=== PATIENT | male | born 2000 | race Caucasian/White ===

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

== ENCOUNTER 2023-03-15 09:06 | Emergency (ER) | payer OTHER, SELFPAY ==
[2023-03-15 09:07] VITALS: BP 126/85; PULSE 108; RESP 18; TEMP 36.3; O2SAT 100
[2023-03-15] MEDS: diphenhydrAMINE HCl CAP 25 MG CAPSULE PO (09:38)
[2023-03-15] MEDS: KETOROLAC 30 MG/ML VIAL (*BKC) IM (09:38)
[2023-03-15] MEDS: METOCLOPRAMIDE HCL INJ 10 MG/2 ML VIAL IM (09:39)
[2023-03-15 09:57] LABS: Influenza A QL RT-PCR Negative (Negative); Influenza B QL RT-PCR Negative (Negative); RSV RNA, RT-PCR Negative (Negative); SARS-CoV-2 RNA PCR Negative (Negative)
[2023-03-15 10:02] LABS: Basophils Absolute Auto 0.1 K/mm3 (0.0-0.1); Basophils Percent Auto 1.3 % (0.2-1.2); Eosinophils Absolute Auto 0.5 K/mm3 (0-0.3); Eosinophils Percent Auto 7.6 % (0-4.4); Hematocrit 45.5 % (42.0-52.0); Hemoglobin 14.4 g/dL (14.0-18.0); Immature Granulocyte Absolute 0.01 K/mm3 (0.00-0.031); Immature Granulocyte Percent A 0.1 % (0-0.5); Lymphocytes Absolute Auto 2.13 K/mm3 (0.9-3.2); Lymphocytes Percent Auto 29.8 % (18.3-44.2); Mean Corpuscular HGB Conc 31.6 g/dl (32-36); Mean Corpuscular Hemoglobin 28.4 pg (26-34); Mean Corpuscular Volume 89.7 fl (80-100); Mean Platelet Volume 10.5 fl (7.4-10.4); Monocytes Absolute Auto 0.6 K/mm3 (0.1-0.6); Monocytes Percent Auto 8.7 % (2.6-8.5); Neutrophils Absolute Auto 3.8 K/mm3 (1.3-6.7); Neutrophils Percent Auto 52.5 % (45.5-73.1); Platelet Count Result 252 k/mm3 (150-375); Red Blood Count 5.07 M/mm3 (4.6-6.20); Red Cell Distribution Width 14.4 % (11.5-14.5); White Blood Count 7.2 K/mm3 (4.5-10.0)
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
[2023-03-15 10:16] LABS: Anion Gap 8 mmol/L (8-16); Blood Urea Nitrogen 8 mg/dL (9-20); Calcium 9.7 mg/dL (8.4-10.2); Carbon Dioxide 29 mmol/L (22-30); Chloride 105 mmol/L (98-107); Estimated CRCL calculation 111 ml/min; Estimated Glomerular Filt Rate > 60; Glucose 93 mg/dL (65-110); Potassium 4.1 mmol/L (3.4-5.0); Sodium 142 mmol/L (137-145)
[2023-03-15 10:34] LABS: Strep Group A RT-PCR NOT DETECTED (Negative)
== END 2023-03-15 10:45 | disposition home or self-care (01) ==
PROVIDERS: Emergency Provider Emergency Medicine; PCP Internal Medicine
DX: M54.2 Cervicalgia (principal); R51.9 Headache, unspecified; Z20.822 Contact with and (suspected) exposure to COVID-19; J45.909 Unspecified asthma, uncomplicated; K21.9 Gastro-esophageal reflux disease without esophagitis; F41.9 Anxiety disorder, unspecified; F32.A Depression, unspecified; F17.290 Nicotine dependence, other tobacco product, uncomplicated
CPT/HCPCS: 36415; 80048; 85025; 87637; 87651; 96372; 99284; A9270; J1885; J2765

== ENCOUNTER 2023-05-31 17:32 | Emergency (ER) | payer OTHER, SELFPAY ==
--- NOTE | ~2023-05-31 | XR_ITS ---
EXAMINATION: XR ribs LT 2V w CXR 2V Exam Date/Time: 05/31/2023 17:54 CDT HISTORY: POSTERIOR LEFT SHOULDER PAIN, STARTED TODAY Comparison: None available. RESULT: Lines, tubes, and devices: None. Lungs and pleura: Clear. Cardiothymic silhouette: Stable. Other: No acute osseous or upper abdominal finding. Mild thoracic scoliosis. IMPRESSION: No acute cardiopulmonary process. No acute osseous finding in the left ribs. Reviewed, dictated and finalized at location K.
--- NOTE | ~2023-05-31 | XR_ITS ---
EXAM: XR shoulder LT min 2V DATE: 05/31/2023 18:05 HISTORY: POSTERIOR LEFT SHOULDER PAIN, STARTED TODAY . COMPARISON: None available. FINDINGS: Normal mineralization. No fracture or dislocation. No lytic or blastic lesion. Joint space s and physes are maintained. No erosion or periosteal change. Soft tissues within normal limits. IMPRESSION: No acute osseous finding in the left shoulder. Reviewed, dictated and finalized at location K.
[2023-05-31 17:34] VITALS: BP 124/78; PULSE 66; RESP 14; TEMP 36.3; O2SAT 99
[2023-05-31] MEDS: KETOROLAC 30 MG/ML VIAL (*BKC) IM (18:07)
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
[2023-05-31 19:11] VITALS: BP 111/79; PULSE 66; RESP 14; TEMP 36.9; O2SAT 100
== END 2023-05-31 19:13 | disposition home or self-care (01) ==
PROVIDERS: Emergency Provider Emergency Medicine; PCP Internal Medicine
DX: M25.512 Pain in left shoulder (principal); J45.909 Unspecified asthma, uncomplicated; K21.9 Gastro-esophageal reflux disease without esophagitis; F32.A Depression, unspecified; F41.9 Anxiety disorder, unspecified; F17.290 Nicotine dependence, other tobacco product, uncomplicated
CPT/HCPCS: 71046; 71100; 73030; 96372; 99284; A4565; J1885

== ENCOUNTER 2023-06-22 09:44 | Outpatient (CLI) | payer OTHER, SELFPAY ==
--- NOTE | ~2023-06-22 | MR_ITS ---
EXAMINATION: MR shoulder LT wo con DATE: 06/22/2023 10:49 INDICATION: Left shoulder pain. TECHNIQUE: Magnetic resonance imaging (MRI) of the left shoulder was performed without intravenous co ntrast. Sequences included axial PD-weighted FS FSE, coronal oblique PD-weighted FS FSE and T2-weight ed FS FSE, and sagittal oblique T2-weighted FS FSE and T1-weighted FSE. COMPARISON: Left shoulder radiographs 05/31/2023 FINDINGS: Coracoacromial arch: The acromion undersurface is flat in morphology (type I). The acromioclavicular joint is normal. Ther e is physiologic fluid in the subacromial/subdeltoid bursa. Rotator cuff: There is mild supraspinatus and infraspinous tendinopathy. Teres minor tendon is normal. Subscapulari s tendon is normal. The rotator cuff muscle bellies are normal. Biceps tendon and glenoid labrum: The biceps tendon is in bicipital groove. Intra-articular biceps tendon is normal. The glenoid labrum is normal. Fluid: There is no glenohumeral joint effusion. Bones/cartilage: Glenoid cartilage is normal. Humeral head cartilage is normal. IMPRESSION: 1. Mild rotator cuff tendinopathy. No tear. Reviewed, dictated and finalized at location E.
== END 2023-06-22 09:45 | disposition home or self-care (01) ==
LOC: ANHIMG 09:44
PROVIDERS: PCP Internal Medicine; Visit Provider Nurse Practitioner
DX: M75.22 Bicipital tendinitis, left shoulder (principal)
CPT/HCPCS: 73221

== ENCOUNTER 2024-03-24 18:51 | Emergency (ER) | payer OTHER, SELFPAY ==
[2024-03-24 18:53] VITALS: BP 123/72; PULSE 80; RESP 20; TEMP 36.1; O2SAT 100
--- OUTSIDE RECORDS SUMMARY | 2024-03-24 18:53 | XMS_ITS | Clinical Summary ---
Author Organization [facility] Address [address] [place] [address] Care Team Providers Care Senior Geotechnical Engineer Name Role Phone Unavailable Primary Care Provider Unavailabl e Source Comments [facility],non-owned Affiliates and Associated Physician Practices is amultiple site organization consisting of ambulatory clinics and hospital sitesin [place], [place], [place] and [place]. This disclosure is being madepursuant to the Care Everywhere program and may not contain all information available regarding this patient. Last updated 17.[facility] Allergies No known active allergies Medications * Be aware that medications may not be up to date on this document. Alwaysverify current medications with the patient. Medication Sig Dispensed Refills Start Date End Date Status amphetamine-dextroamph etamine (ADDERALL) 5 MG tablet Take 5 mg by mouth every morning Active FLUoxetine (PROZAC) 40 MG capsule 11/09/2018 Active ondansetron, disintegrating, (ZOFRAN ODT) 4 MG tablet 10/13/2018 Active Active Problems Problem Noted Date Diagnosed Date Closed nondisplaced fracture of proximal phalanx of finger with routine healing 02/13/2016 Avulsion fracture of thumb 02/13/2016 Chronic tonsillitis Family History Medical History Relation Name Comments Anesthesia Reaction Neg Hx Social History Tobacco Use Types Packs/Day Years Used Date Smoking Tobacco: Passive Smo ke Exposure - Never Smoker Tobacco Cessation:Counseling Given: No Alcohol Use Standard Drinks/Week Comments No 0 (1 standard drink = 0.6 oz pur e alcohol) Sex and Gender Information Value Date Recorded Sex Assigned at Not on file Gender Identity Not on file Sexual Orientation Not on file Last Filed Vital Signs Vital Sign Reading Time Taken Comments Blood Pressure 117/79 02/22/2016 1:30 PM BRAND ACTIVATION MANAGER Pulse 88 02/22/2016 2:00 PM BRAND ACTIVATION MANAGER Temperature 36.2 ??C (97.2 ??F) 02/22/2016 1:30 PM CS T Respiratory Rate 16 02/22/2016 2:00 PM BRAND ACTIVATION MANAGER Oxygen Saturation 97% 02/22/2016 2:00 PM BRAND ACTIVATION MANAGER Inhaled Oxygen Concentration - - Weight 36.4 kg (80 lb 4 oz) 11/13/2018 2:44 PM C DT Height 157.6 cm (5' 2.05 ) 11/13/2018 2:44 PM CD T Body Mass Index 14.66 11/13/2018 2:44 PM CDT Plan of Treatment Health Maintenance Due Date Last Done Comments HIV SCREENING 2017 HPV VACCINE (1 - Male 3-dose series) 2017 MENINGOCOCCAL (Group B) VACC INE (1 of 2 - Standard) 2018 HEPATITIS C SCREENING 12/04/2020 DTAP/TDAP/TD VACCINES (1 - Tdap) 2021 HEPATITIS B VACCINE (1 of 3 - 19+ 3-dose series) 2021 COVID-19 VACCINE (1 - 2023-2 5 season) 2023 INFLUENZA VACCINE (#1) 2023 DEPRESSION SCREENING 02/25/2024 ZOSTER VACCINE (1 of 2) 2052 HIB VACCINE Aged Out No longer eligi ble based on patient's age to complete this topic MENINGOCOCCAL VACCINE Aged Out No yasmani radha eligible based on patient's age to complete this topic PNEUMOCOCCAL VACCINE Aged Out No long er eligible based on patient's age to complete this topic
--- OUTSIDE RECORDS SUMMARY | 2024-03-24 18:53 | XMS_ITS | Patient Health Summary ---
Author Organization [facility] Address [address] [place] [address] Care Team Providers Care Last Sorter Name Role Phone Unavailable Primary Care Provider Unavailabl e Note from [facility],non-owned Affiliates and Associated Physician Practices is amultiple site organization consisting of ambulatory clinics and hospital sitesin [place], [place], [place] and [place]. This disclosure is being madepursuant to the Care Everywhere program and may not contain all information available regarding this patient. Last updated 17.[facility] Allergies No known active allergies Medications * Be aware that medications may not be up to date on this document. Alwaysverify current medications with the patient. * amphetamine-dextroamphetamine (ADDERALL) 5 MG tablet Take 5 mg by mouth every morning * FLUoxetine (PROZAC) 40 MG capsule(Started 11/09/2018) * ondansetron, disintegrating, (ZOFRAN ODT) 4 MG tablet(Started 10/13/2018) Active Problems Problem Noted Date Diagnosed Date Closed nondisplaced fracture of proximal phalanx of finger with routine healing 02/13/2016 Avulsion fracture of thumb 02/13/2016 Chronic tonsillitis Social History Tobacco Use Types Packs/Day Years [...] Comments Blood Pressure 117/79 02/22/2016 1:30 PM LABOR SPECIALIST Pulse 88 02/22/2016 2:00 PM LABOR SPECIALIST Temperature 36.2 ??C (97.2 ??F) 02/22/2016 1:30 PM CS T Respiratory Rate 16 02/22/2016 2:00 PM LABOR SPECIALIST Oxygen Saturation 97% 02/22/2016 2:00 PM LABOR SPECIALIST Inhaled Oxygen Concentration - - Weight 36.4 kg (80 lb 4 oz) 11/13/2018 2:44 PM C DT Height 157.6 cm (5' 2.05 ) 11/13/2018 2:44 PM CD T Body Mass Index 14.66 11/13/2018 2:44 PM CDT Procedures * XR HAND RIGHT 3VW OR MORE(Performed 11/13/2018) Performed for Right hand pain * GROSS EXAM PATHOLOGY (STL)(Performed 02/22/2016) Performed for Chronic tonsillitis * TONSILLECTOMY AND ADENOIDECTOMY(Performed 02/22/2016) Performed for Chronic tonsillitis Results * XR HAND 3+ VW RIGHT (11/13/2018 3:14 PM CDT) Anatomical Region Laterality Modality Wrist / Hand Radiographic Dorothea ging 11/13/2018 3:47 PM CDT Impressions 11/13/2018 3:49 PM CDT Normal radiographic examination of the right hand. Reading Radiologist: Cristiano Albright MD on 11/13/2018 at 3:49 PM Narrative 11/13/2018 3:49 PM CDT CLINICAL HISTORY: ??Pain in right hand COMPARISON: ??None. PROCEDURE: ??Three views of the right hand. FINDINGS: There is no visible fracture or other bony abnormality. ??The articulations are normal. The soft tissues are radiographically normal. Procedure Note Cristiano Albright MD - 11/13/2018 CLINICAL HISTORY: Pain in right hand COMPARISON: None. PROCEDURE: Three views of the right hand. FINDINGS: There is no visible fracture or other bony abnormality. The articulations are normal. The soft tissues are radiographically normal. IMPRESSION Normal radiographic examination of the right hand. Reading Radiologist: Cristiano Albright MD on 11/13/2018 at 3:49 PM Raz Villalobos MD DIAGNOSTIC IMAGING O RDERABLES * GROSS EXAM PATHOLOGY (STL) (02/22/2016 11:45 AM LABOR SPECIALIST) Case Report Surgical Pathology Report ? Case: [id number] ? Authorizing Provider: ??Kathleen Fernandez MD ?Collected: ? 02/22/2016 11:45 AM ? Ordering Location: ? [facility] ? Received: ?02/22/2016 12:06 PM ? Pathologist: ? Myranda Driscoll MD ? Specimen: ?Tonsil(s) ? 02/22/2016 1:59 PM [facility] Final Diagnosis GROSS DIAGNOSIS: PALATINE TONSILS. 02/22/2016 1:59 PM [facility] Clinical History The patient is a 15-year-old boy with chronic tonsillitis. 02/22/2016 1:59 PM [facility] Gross Description Submitted fresh in one container for gross examination only labeled with the patient's name, Derek Hays, and bilateral tonsils, are two egg-shaped, pink-weems palatine tonsils measuring 2.3 x 1.7 x 1.4 cm and 2.4 x 1.5 x 1.2 cm weighing 6 grams combined. On cut surface, the tonsils have a cerebriform yellow-weems appearance. No sections are taken. (CT/alj) 02/22/2016 1:59 PM [facility] Embedded Images 02/22/2016 1:59 PM [facility] Pathology/Cytolo gy SPECIMEN FROM TONSIL / Unknown 02/22/2016 11:45 AM LABOR SPECIALIST 02/22/2016 12:06 PM [facility] Kathleen Fernandez MD LAB - PATHOLOGY/CYTO LOGY ORDERABLES Performing Organization Address City/State/[facility] Co de Phone Number [facility] [place] [address]
--- OUTSIDE RECORDS SUMMARY | 2024-03-24 18:53 | XMS_ITS | Clinical Summary ---
Author Organization [facility] Care Team Providers Care Ocean Freight Forwarder Name Role Phone Unavailable Primary Care Provider Unavailabl e Social History Tobacco Use Types Packs/Day Years Used Date Smoking Tobacco: Never Assessed Sex and Gender Information Value Date Recorded Sex Assigned at Not on file Legal Sex Male 3:18 PM SAMPLE EXAMINER Gender Identity Not on file Sexual Orientation Not on file Plan of Treatment Health Maintenance Due Date Last Done Comments Hepatitis C Virus (HCV) Screening 2002 Meningococcal B Immunization (2 of 2 - Bexsero SCDM 2-dose series) 09/20/2019 03/22/2019 Influenza Immunization (#1) 10/26/202302/25, 12/05/2017, 12/02/2016, Additional history exists SARS-COV-2 Immunization ( season) 2023 07/14/2020, 05/21/2020 Respiratory Syncytial Virus (RSV) Immunization (Adult) (1 - 1-dose 75+ series) 2077 Hepatitis B Immunization Completed 004, 04/13/2003, 02/21/2003 Pneumococcal Immunization Combined Completed 01/05/2004, 06/17/2003, 04/13/2003, Additional history exists Measles Mumps Rubella (MMR) Immunization Discontinued 10/05/2007, 04/02/2004 Varicella Immunization Discontinued 09/07/2008, 2003 Polio (IPV) Immunization Discontinued 009, 06/17/2003, 04/13/2003, Additional history exists DTaP/Tdap/Td Immunization Discontinued 2014, 09/10/2008, 10/05/2007, Additional history exists Hepatitis A Immunization Discontinued 06/25/2014, 08/24 TdaP Immunization Completed 06/25/2014 Human Papillomavirus (HPV) Immunization Completed 10/03/2015, 08/25/2014, 06/25/2014 Meningococcal Immunization (ACWY) Completed 03/22/2019, 06/25/2014 Rotavirus Immunization Aged Out No lo nger eligible based on patient's age to complete this topic
--- OUTSIDE RECORDS SUMMARY | 2024-03-24 18:53 | XMS_ITS | Referral Summary ---
Author Organization [facility] Address [address] [place] [address] Care Team Providers Care Computer Systems Manager Name Role Phone Unavailable Primary Care Provider Unavailabl e Source Comments [facility],non-owned Affiliates and Associated Physician Practices is amultiple site organization consisting of ambulatory clinics and hospital sitesin [place], [place], [place] and [place]. This disclosure is being madepursuant to the Care Everywhere program and may not contain all information available regarding this patient. Last updated 17.[facility] Allergies No known active allergies Medications * [...] Comments Blood Pressure 117/79 02/22/2016 1:30 PM SPRAY WORKER Pulse 88 02/22/2016 2:00 PM SPRAY WORKER Temperature 36.2 ??C (97.2 ??F) 02/22/2016 1:30 PM CS T Respiratory Rate 16 02/22/2016 2:00 PM SPRAY WORKER Oxygen Saturation 97% 02/22/2016 2:00 PM SPRAY WORKER Inhaled Oxygen Concentration - - Weight 36.4 kg (80 lb 4 oz) 11/13/2018 2:44 PM C DT Height 157.6 cm (5' 2.05 ) 11/13/2018 2:44 PM CD T Body Mass Index 14.66 11/13/2018 2:44 PM CDT Functional Status Functional Status Response Date of Assess ment Is person deaf or have serious hearing difficult y? No 02/22/2016 Is person blind or have serious difficulty seein g? No 02/22/2016 Does person have serious dif ficulty walking/climbing stairs? No 02/22/2016 Does person have difficulty dressing/bathing? No 02/22/2016 Does person have difficulty doing errands alone? No 02/22/2016 Cognitive Status Response Date of Assessm ent Does person have difficulty concentrating/remembering/making decisions? No 02/22/2016 Plan of Treatment Not on file
--- NOTE | 2024-03-24 20:58 | PC.NURSE ---
Pt. called in WR to be brought back to a room with no reply.
--- OUTSIDE RECORDS SUMMARY | 2024-03-24 21:58 | XMS_ITS | Clinical Summary ---
Author Organization [facility] Care Team Providers Care Business Programmer Name Role Phone Unavailable Primary Care Provider Unavailabl e Social History Tobacco Use Types Packs/Day Years Used Date Smoking Tobacco: Never Assessed Sex and Gender Information Value Date Recorded Sex Assigned at Not on file Legal Sex Male 3:18 PM CASH GRAIN GROWER Gender Identity Not on file Sexual Orientation [...]
--- OUTSIDE RECORDS SUMMARY | 2024-03-24 21:58 | XMS_ITS | Clinical Summary ---
Author Organization [facility] Address [address] [place] [address] Care Team Providers Care Patent Lawyer Name Role Phone Unavailable Primary Care Provider Unavailabl e Source Comments [facility],non-owned Affiliates and Associated Physician Practices is amultiple site organization consisting of ambulatory clinics and hospital sitesin [place], [place] and [place]. This disclosure is being madepursuant to the Care Everywhere program and may not contain all information available regarding this patient. Last updated 17.[facility] Allergies No known active allergies Medications [...] Comments Blood Pressure 117/79 02/22/2016 1:30 PM FOREST ECOLOGIST Pulse 88 02/22/2016 2:00 PM FOREST ECOLOGIST Temperature 36.2 ??C (97.2 ??F) 02/22/2016 1:30 PM CS T Respiratory Rate 16 02/22/2016 2:00 PM FOREST ECOLOGIST Oxygen Saturation 97% 02/22/2016 2:00 PM FOREST ECOLOGIST Inhaled Oxygen Concentration - - Weight 36.4 [...]
--- OUTSIDE RECORDS SUMMARY | 2024-03-24 21:58 | XMS_ITS | Referral Summary ---
Author Organization [facility] Address [address] [place] [address] Care Team Providers Care Water Quality Analyst Name Role Phone Unavailable Primary Care Provider Unavailabl e Source Comments [facility],non-owned Affiliates and Associated Physician Practices is amultiple site organization consisting of ambulatory clinics and hospital sitesin [place], [place], [place] and [place]. This disclosure is being madepursuant to the Care Everywhere program and may not contain all information available regarding this patient. Last updated 17.[facility] Allergies No known active allergies [...] Comments Blood Pressure 117/79 02/22/2016 1:30 PM SALES CONSULTANT INSURANCE Pulse 88 02/22/2016 2:00 PM SALES CONSULTANT INSURANCE Temperature 36.2 ??C (97.2 ??F) 02/22/2016 1:30 PM CS T Respiratory Rate 16 02/22/2016 2:00 PM SALES CONSULTANT INSURANCE Oxygen Saturation 97% 02/22/2016 2:00 PM SALES CONSULTANT INSURANCE Inhaled Oxygen Concentration - - Weight 36.4 [...]
--- OUTSIDE RECORDS SUMMARY | 2024-03-24 21:58 | XMS_ITS | Patient Health Summary ---
Author Organization [facility] Address [address] [place] [address] Care Team Providers Care Data Integrity Specialist Name Role Phone Unavailable Primary Care Provider Unavailabl e Note from [facility],non-owned Affiliates and Associated Physician Practices is amultiple site organization consisting of ambulatory clinics and hospital sitesin [place], [place], [place] and [place]. This disclosure is being madepursuant to the Care Everywhere program and may not contain all information available regarding this patient. Last updated 17.[facility] Allergies No known active allergies Medications [...] Comments Blood Pressure 117/79 02/22/2016 1:30 PM MANAGER WELLNESS Pulse 88 02/22/2016 2:00 PM MANAGER WELLNESS Temperature 36.2 ??C (97.2 ??F) 02/22/2016 1:30 PM CS T Respiratory Rate 16 02/22/2016 2:00 PM MANAGER WELLNESS Oxygen Saturation 97% 02/22/2016 2:00 PM MANAGER WELLNESS Inhaled Oxygen Concentration - - Weight 36.4 [...] GROSS EXAM PATHOLOGY (STL) (02/22/2016 11:45 AM MANAGER WELLNESS) Case Report Surgical Pathology Report ? Case: [id number] ? Authorizing Provider: ??Kathleen Fernandez MD ?Collected: ? 02/22/2016 11:45 AM ? Ordering Location: ? [facility] ? Received: ?02/22/2016 12:06 PM ? Pathologist: ? Myranda Driscoll MD ? Specimen: ?Tonsil(s) ? 02/22/2016 1:59 PM [facility] Final Diagnosis GROSS DIAGNOSIS: PALATINE TONSILS. 02/22/2016 1:59 PM [facility] Clinical History The patient is a 15-year-old boy with chronic tonsillitis. 02/22/2016 1:59 PM [facility] Gross Description Submitted fresh in one [...] sections are taken. (CT/alj) 02/22/2016 1:59 PM [facility] Embedded Images 02/22/2016 1:59 PM [facility] Pathology/Cytolo gy SPECIMEN FROM TONSIL / Unknown 02/22/2016 11:45 AM MANAGER WELLNESS 02/22/2016 12:06 PM [facility] Kathleen Fernandez MD LAB - PATHOLOGY/CYTO LOGY ORDERABLES Performing Organization Address City/State/[facility] Co de Phone Number [facility] [place] [address]
== END 2024-03-24 21:58 | disposition left against medical advice (07) ==
PROVIDERS: PCP Internal Medicine
DX: M54.2 Cervicalgia (principal)
CPT/HCPCS: 99199

== ENCOUNTER 2024-03-31 22:24 | Emergency (ER) | payer OTHER, SELFPAY ==
--- NOTE | ~2024-03-31 | XR_ITS ---
CHEST RADIOGRAPH, PA AND LATERAL CLINICAL HISTORY: CHEST PAIN NECK PAIN HEADACHE NAUSEA . COMPARISON: 05/31/2023 TECHNIQUE: PA and lateral views of the chest. FINDINGS The cardiomediastinal silhouette is unremarkable. The lungs are clear. Visualized osseous structures and soft tissues are unremarkable. IMPRESSION: No focal infiltrate or effusion. Reviewed, dictated and finalized at location A. AL SCIENCE INSTRUCTOR
[2024-03-31 22:25] VITALS: BP 109/73; PULSE 69; RESP 16; TEMP 36.8; O2SAT 99
--- NOTE | 2024-03-31 22:25 | ECG_ITS ---
Test Date: 2024-03-31 22:32:25 Measurements Intervals [place] Rate: 59 P: 74 NC: 165 QRS: 74 QRSD: 116 T: 73 QT: 388 QTc: 387 Interpretive Statements SINUS BRADYCARDIA INCOMPLETE RIGHT BUNDLE BRANCH BLOCK POSSIBLE ANTERIOR MYOCARDIAL INFARCTION , OF INDETERMINATE AGE BASELINE ARTIFACT- I, II, III, AVR, AVL, AVF, V1, V5-V6 ABNORMAL ECG No previous ECG available for comparison Electronically Signed On 04-01-2024 06:20:51 ELECTRONICS PROCESSING SUPERVISOR by Wilbert Parker D.O.
--- OUTSIDE RECORDS SUMMARY | 2024-03-31 22:25 | XMS_ITS | Clinical Summary ---
Author Organization [facility] Address [address] [place] [address] Care Team Providers Care Supervisor Drawing Name Role Phone Unavailable Primary Care Provider Unavailabl e Source Comments [facility],non-owned Affiliates and Associated Physician Practices is amultiple site organization consisting of ambulatory clinics and hospital sitesin [place], [place], [place] and [place]. This disclosure is being madepursuant to the Care Everywhere program and may not contain all information available regarding this patient. Last updated 17.[facility] Allergies No known active allergies Medications * [...] Comments Blood Pressure 117/79 02/22/2016 1:30 PM MIDDLEWARE SYSTEMS ARCHITECT Pulse 88 02/22/2016 2:00 PM MIDDLEWARE SYSTEMS ARCHITECT Temperature 36.2 C (97.2 F) 02/22/2016 1:30 PM MIDDLEWARE SYSTEMS ARCHITECT Respiratory Rate 16 02/22/2016 2:00 PM MIDDLEWARE SYSTEMS ARCHITECT Oxygen Saturation 97% 02/22/2016 2:00 PM MIDDLEWARE SYSTEMS ARCHITECT Inhaled Oxygen Concentration - - Weight 36.4 [...] on patient's age to complete this topic NAT ROLLINS Personal/Family Other [address] [place] [address]
--- OUTSIDE RECORDS SUMMARY | 2024-03-31 22:25 | XMS_ITS | Patient Health Summary ---
Author Organization [facility] Address [address] [place] [address] Care Team Providers Care Pants Cutter Name Role Phone Unavailable Primary Care Provider Unavailabl e Note from [facility],non-owned Affiliates and Associated Physician Practices is amultiple site organization consisting of ambulatory clinics and hospital sitesin [place], [place], [place] and [place]. This disclosure is being madepursuant to the Care Everywhere program and may not contain all information available regarding this patient. Last updated 17.[facility] Allergies No known active allergies Medications [...] Comments Blood Pressure 117/79 02/22/2016 1:30 PM LOGISTICS CLERK Pulse 88 02/22/2016 2:00 PM LOGISTICS CLERK Temperature 36.2 C (97.2 F) 02/22/2016 1:30 PM LOGISTICS CLERK Respiratory Rate 16 02/22/2016 2:00 PM LOGISTICS CLERK Oxygen Saturation 97% 02/22/2016 2:00 PM LOGISTICS CLERK Inhaled Oxygen Concentration - - Weight 36.4 [...] Narrative 11/13/2018 3:49 PM CDT CLINICAL HISTORY: Pain in right hand COMPARISON: [...] GROSS EXAM PATHOLOGY (STL) (02/22/2016 11:45 AM LOGISTICS CLERK) Case Report Surgical Pathology Report Case: [id number] Authorizing Provider: Kathleen Fernandez MD Collected: 02/22/2016 11:45 AM Ordering Location: [facility] Received: 02/22/2016 12:06 PM Pathologist: Myranda Driscoll MD Specimen: Tonsil(s) 02/22/2016 1:59 PM [facility] Final Diagnosis GROSS DIAGNOSIS: PALATINE TONSILS. 02/22/2016 1:59 PM [facility] Clinical History The patient is a 15-year-old boy with chronic tonsillitis. 02/22/2016 1:59 PM [facility] Gross Description Submitted fresh in one [...] sections are taken. (CT/alj) 02/22/2016 1:59 PM [facility] Embedded Images 02/22/2016 1:59 PM [facility] Pathology/Cytolo gy SPECIMEN FROM TONSIL / Unknown 02/22/2016 11:45 AM LOGISTICS CLERK 02/22/2016 12:06 PM LOGISTICS CLERK Kathleen Fernandez MD LAB - PATHOLOGY/CYTO LOGY ORDERABLES [facility] [address] [place] [address]
--- OUTSIDE RECORDS SUMMARY | 2024-03-31 22:25 | XMS_ITS | Clinical Summary ---
Author Organization [facility] Care Team Providers Care Metal Organ Pipe Maker Name Role Phone Unavailable Primary Care Provider Unavailabl e Social History Tobacco Use Types Packs/Day Years Used Date Smoking Tobacco: Never Assessed Sex and Gender Information Value Date Recorded Sex Assigned at Not on file Legal Sex Male 3:18 PM PERSONNEL MONITOR Gender Identity Not on file Sexual Orientation [...]
--- OUTSIDE RECORDS SUMMARY | 2024-03-31 22:25 | XMS_ITS | Referral Summary ---
Author Organization [facility] Address [address] [place] [address] Care Team Providers Care Rn Hyperbaric Name Role Phone Unavailable Primary Care Provider Unavailabl e Source Comments [facility],non-owned Affiliates and Associated Physician Practices is amultiple site organization consisting of ambulatory clinics and hospital sitesin [place], [place], [place] and [place]. This disclosure is being madepursuant to the Care Everywhere program and may not contain all information available regarding this patient. Last updated 17.[facility] Allergies No known active allergies Medications [...] Comments Blood Pressure 117/79 02/22/2016 1:30 PM PIPE STEM REPAIRER Pulse 88 02/22/2016 2:00 PM PIPE STEM REPAIRER Temperature 36.2 C (97.2 F) 02/22/2016 1:30 PM PIPE STEM REPAIRER Respiratory Rate 16 02/22/2016 2:00 PM PIPE STEM REPAIRER Oxygen Saturation 97% 02/22/2016 2:00 PM PIPE STEM REPAIRER Inhaled Oxygen Concentration - - Weight 36.4 [...]
[2024-03-31 23:03] LABS: Basophils Absolute Auto 0.1 K/mm3 (0.0-0.1); Basophils Percent Auto 1.2 % (0.2-1.2); Eosinophils Absolute Auto 0.4 K/mm3 (0-0.3); Eosinophils Percent Auto 6.4 % (0-4.4); Hemoglobin 15.2 g/dL (14.0-18.0); Immature Granulocyte Absolute 0.02 K/mm3 (0.00-0.031); Immature Granulocyte Percent A 0.3 % (0-0.5); Lymphocytes Absolute Auto 1.62 K/mm3 (0.9-3.2); Lymphocytes Percent Auto 24.2 % (18.3-44.2); Mean Corpuscular Hemoglobin 28.8 pg (26-34); Mean Corpuscular Volume 87.1 fl (80-100); Mean Platelet Volume 10.6 fl (7.4-10.4); Monocytes Absolute Auto 0.5 K/mm3 (0.1-0.6); Monocytes Percent Auto 7.5 % (2.6-8.5); Neutrophils Absolute Auto 4.1 K/mm3 (1.3-6.7); Neutrophils Percent Auto 60.4 % (45.5-73.1); Platelet Count Result 281 k/mm3 (150-375); Red Blood Count 5.28 M/mm3 (4.6-6.20); Red Cell Distribution Width 14.2 % (11.5-14.5); White Blood Count 6.7 K/mm3 (4.5-10.0)
[2024-03-31 23:14] LABS: INR 1.1; Prothrombin Time 14.9 Seconds (11.1-14.7)
[2024-03-31 23:15] LABS: Partial Thromboplastin Time 30.6 Seconds (22.3-36.8)
[2024-03-31 23:17] LABS: Alanine Aminotransferase 15 U/L (6-50); Albumin Level 4.4 g/dL (3.5-5.1); Alkaline Phosphatase 85 U/L (38-126); Anion Gap 11 mmol/L (4-12); Aspartate Amino Transferase 18 U/L (17-59); Bilirubin,Total 0.5 mg/dL (0.2-1.3); Blood Urea Nitrogen 11 mg/dL (9-20); Calcium 9.6 mg/dL (8.4-10.2); Carbon Dioxide 23 mmol/L (22-30); Chloride 104 mmol/L (98-107); Estimated CRCL calculation 132 ml/min; Estimated Glomerular Filt Rate > 60; Glucose 101 mg/dL (65-110); Lipase 128 U/L (23-300); Potassium 4.1 mmol/L (3.4-5.0); Sodium 138 mmol/L (137-145)
[2024-03-31 23:26] LABS: Troponin I < 0.012 ng/mL (0.000-0.034)
[2024-04-01 04:59] VITALS: O2SAT 100
[2024-04-01 05:00] VITALS: BP 114/68; PULSE 60; RESP 14; TEMP 36.7; O2SAT 100
[2024-04-01 05:22] VITALS: BP 108/64; PULSE 60; RESP 14; TEMP 36.7; O2SAT 100
[2024-04-01 05:46] LABS: Influenza A QL RT-PCR Negative (Negative); Influenza B QL RT-PCR Negative (Negative); RSV RNA, RT-PCR Negative (Negative); SARS-CoV-2 RNA PCR Negative (Negative)
[2024-04-01 07:13] VITALS: BP 103/73; PULSE 78; RESP 14; O2SAT 100
--- NOTE | 2024-04-01 07:33 | ED_ITS ---
HPI - General Adult General Chief complaint: Chest Pain Stated complaint: head, neck, chest pain, nausea Time Seen by Provider: 04/01/24 07:18 History of Present Illness HPI narrative: Patient 23-year-old gentleman presents emergency department with chief complaint of head neck and chest pain the patient reports that around 3:00 a.m. he started having pain states that the pain is worse with movement reports that it is in the muscles of his neck. Patient denies fever denies productive cough states that pain feels sharp and achy at the same time. Related Data Allergies Allergy/AdvReac Type Severity Reaction Status Date / Time No Known Allergies Allergy Verified 04/01/24 04:58 Review of Systems 2 Review of Systems: A 10 system review of systems was completed on the patient and is negative except for what is stated in the HPI. Nursing and ancillary documentation was reviewed. [facility] Past Medical History Medical History Anxiety Suicidal ideation Self-harm Depression Finger fracture GERD (gastroesophageal reflux disease) Asthma Surgical History Surgical History History of tonsillectomy Family History Family History Father Asthma Mother Asthma Depression Anxiety Grandparent Diabetes mellitus Hypertension Social History Social History Smoking status: Current every day smoker Tobacco type: e-cigarettes/vaping Substance use: current Substance use type: marijuana Other substance usage details: Occasionally smokes marijuana for depression and anxiety Do You Feel Safe in your Home?: Yes Lack of Transportation: No Lack of Food: Never True Current Housing: I Have Housing Concerned About Future Housing: No Difficulty Paying Gas/Electric Bills: No Difficulty Paying for Meds: No Currently Unemployed: YES Education: High School Diploma/GED Difficulty w/ Childcare or Family Care: No Living arrangements: with family Gender identity (if verbalized by the patient): Male Exam 2 Narrative: GENERAL: Well-appearing, well-nourished, and in no acute distress. HEAD: Normocephalic, atraumatic. EYES: PERRLA and EOMI. ENT: Nares clear, no rhinorrhea or epistaxis. Mucous membranes moist. NECK: Supple. Shortness palpation paraspinous muscles of the left side of the neck no crepitance CHEST: Clear to auscultation. No respiratory distress. HEART: Regular rate and rhythm. No murmur heard. Normal peripheral pulses. ABDOMEN: Soft, nontender, nondistended, normal active bowel sounds. EXTREMITIES: Normal range of motion. No edema. SKIN: Warm, dry, no rash. NEURO: No focal deficits. Alert and oriented x3. PSYCH: Normal mood and affect. Course Vital Signs Vital signs: Vital Signs Temperature 36.8 C 03/31/24 22:25 Pulse Rate 69 03/31/24 22:25 Respiratory Rate 16 03/31/24 22:25 Blood Pressure 109/73 03/31/24 22:25 Pulse Oximetry 99 03/31/24 22:25 Oxygen Delivery Room Air 03/31/24 22:25 Temperature 36.7 C 04/01/24 05:22 Pulse Rate 78 04/01/24 07:13 Respiratory Rate 14 04/01/24 07:13 Blood Pressure 103/73 04/01/24 07:13 Pulse Oximetry 100 04/01/24 07:13 Oxygen Delivery Room Air 04/01/24 05:00 Medical Decision Making MDM Narrative Medical decision making narrative: Differential diagnosis includes musculoskeletal pain, Laboratory studies were obtained on the patient showed a normal CBC normal CMP troponin was negative COVID flu and RSV were negative Chest x-ray showed no focal infiltrate Vital Signs Vital Signs: Vital Signs Temperature 36.8 C 03/31/24 22:25 Pulse Rate 69 03/31/24 22:25 Respiratory Rate 16 03/31/24 22:25 Blood Pressure 109/73 03/31/24 22:25 Pulse Oximetry 99 03/31/24 22:25 Oxygen Delivery Room Air 03/31/24 22:25 Temperature 36.7 C 04/01/24 05:22 Pulse Rate 78 04/01/24 07:13 Respiratory Rate 14 04/01/24 07:13 Blood Pressure 103/73 04/01/24 07:13 Pulse Oximetry 100 04/01/24 07:13 Oxygen Delivery Room Air 04/01/24 05:00 Lab Data 03/31/24 22:39 03/31/24 22:39 Labs: Lab Results 03/31/24 04/01/24 Range/Units 22:39 05:05 WBC 6.7 (4.5-10.0) K/mm3 RBC 5.28 (4.6-6.20) M/mm3 Hgb 15.2 (14.0-18.0) g/dL Hct 46.0 (42.0-52.0) % MCV 87.1 (80-100) fl MCH 28.8 (26-34) pg MCHC 33.0 (32-36) g/dl RDW 14.2 (11.5-14.5) % Plt Count 281 (150-375) k/mm3 MPV 10.6 H (7.4-10.4) fl Immature Gran % (Auto) 0.3 (0-0.5) % Neut % (Auto) 60.4 (45.5-73.1) % Lymph % (Auto) 24.2 (18.3-44.2) % [place] % (Auto) 7.5 (2.6-8.5) % Eos % (Auto) 6.4 H (0-4.4) % Baso % (Auto) 1.2 (0.2-1.2) % Lymph # (Auto) 1.62 (0.9-3.2) K/mm3 [place] # (Auto) 0.5 (0.1-0.6) K/mm3 Eos # (Auto) 0.4 H (0-0.3) K/mm3 Baso # (Auto) 0.1 (0.0-0.1) K/mm3 Abs Immat Gran (auto) 0.02 (0.00-0.031) K/mm3 Absolute Neuts (auto) 4.1 (1.3-6.7) K/mm3 Absolute Nucleated RBC 0.000 (0.0-0.012) K/mm3 Nucleated RBC % 0.0 (0.0-0.2) % PT 14.9 H (11.1-14.7) Seconds INR 1.1 APTT 30.6 (22.3-36.8) Seconds Sodium 138 (137-145) mmol/L Potassium 4.1 (3.4-5.0) mmol/L Chloride 104 (98-107) mmol/L Carbon Dioxide 23 (22-30) mmol/L Anion Gap 11 (4-12) mmol/L BUN 11 (9-20) mg/dL Creatinine 0.58 L (0.7-1.3) mg/dL Estim Creat Clear Calc 132 ml/min Estimated GFR > 60 (59 - ) Glucose 101 (65-110) mg/dL Calcium 9.6 (8.4-10.2) mg/dL Total Bilirubin 0.5 (0.2-1.3) mg/dL AST 18 (17-59) U/L ALT 15 (6-50) U/L Alkaline Phosphatase 85 (38-126) U/L Troponin I < 0.012 (0.000-0.034) ng/mL Total Protein 7.0 (6.3-8.2) g/dL Albumin 4.4 (3.5-5.1) g/dL Lipase 128 (23-300) U/L Influenza A (RT-PCR) Negative (Negative) Influenza B (RT-PCR) Negative (Negative) RSV (RT-PCR) Negative (Negative) SARS-CoV-2 RNA (RT-PCR) Negative (Negative) Discharge Plan Discharge Clinical Impression: Neck Pain Patient Disposition: Home, Self-Care Condition: Stable Instructions: Antibiotic Form, Acute Neck Pain (ED) Patient Language: Turkmen Prescriptions: New diclofenac potassium 50 mg tablet 50 mg PO TID PRN (Reason: pain) Qty: 30 0RF cyclobenzaprine 10 mg tablet 10 mg PO TID PRN (Reason: muscle spasm) Qty: 21 0RF No Action albuterol sulfate 90 mcg/actuation HFA aerosol inhaler 2 puff inhalation Q4H PRN (Reason: shortness of breath or wheezing) Qty: 8.5 3RF methocarbamol 750 mg tablet 750 mg PO TID Qty: 30 0RF ibuprofen 600 mg tablet 600 mg PO TID PRN (Reason: fever or pain) Qty: 30 0RF ondansetron 4 mg tablet,disintegrating 4 mg PO Q8H PRN (Reason: nausea and vomiting) Qty: 10 0RF cyclobenzaprine 10 mg tablet 10 mg PO TID PRN (Reason: muscle spasm) Qty: 20 0RF naproxen 375 mg tablet 375 mg PO BID Qty: 14 0RF hydroxyzine HCl 25 mg tablet 25 mg PO DAILY PRN (Reason: anxiety) Qty: 90 3RF Follow-up/Referrals: Thiago Coy, [Primary Care Provider] - Time of Disposition: 07:36
--- OUTSIDE RECORDS SUMMARY | 2024-04-01 07:52 | XMS_ITS | Clinical Summary ---
Author Organization [facility] Address [address] [place] [address] Care Team Providers Care Waiter/Waitress Head Name Role Phone Unavailable Primary Care Provider Unavailabl e Source Comments [facility],non-owned Affiliates and Associated Physician Practices is amultiple site organization consisting of ambulatory clinics and hospital sitesin [place], [place], [place] and [place]. This disclosure is being madepursuant to the [...] Comments Blood Pressure 117/79 02/22/2016 1:30 PM WINTERIZER Pulse 88 02/22/2016 2:00 PM WINTERIZER Temperature 36.2 C (97.2 F) 02/22/2016 1:30 PM WINTERIZER Respiratory Rate 16 02/22/2016 2:00 PM WINTERIZER Oxygen Saturation 97% 02/22/2016 2:00 PM WINTERIZER Inhaled Oxygen Concentration - - Weight 36.4 [...]
--- OUTSIDE RECORDS SUMMARY | 2024-04-01 07:52 | XMS_ITS | Referral Summary ---
Author Organization [facility] Address [address] [place] [address] Care Team Providers Care Brush Loader And Handle Attacher Name Role Phone Unavailable Primary Care Provider Unavailabl e Source Comments [facility],non-owned Affiliates and Associated Physician Practices is amultiple site organization consisting of ambulatory clinics and hospital sitesin [place], [place], [place] and [place]. This disclosure is being madepursuant to the Care Everywhere program and may not contain all information available regarding this patient. Last updated 17.[facility] Allergies No known active allergies [...] Comments Blood Pressure 117/79 02/22/2016 1:30 PM FUR MACHINE OPERATOR Pulse 88 02/22/2016 2:00 PM FUR MACHINE OPERATOR Temperature 36.2 C (97.2 F) 02/22/2016 1:30 PM FUR MACHINE OPERATOR Respiratory Rate 16 02/22/2016 2:00 PM FUR MACHINE OPERATOR Oxygen Saturation 97% 02/22/2016 2:00 PM FUR MACHINE OPERATOR Inhaled Oxygen Concentration - - Weight 36.4 [...]
--- OUTSIDE RECORDS SUMMARY | 2024-04-01 07:52 | XMS_ITS | Patient Health Summary ---
Author Organization [facility] Address [address] [place] [address] Care Team Providers Care Lens Edge Grinder Machine Name Role Phone Unavailable Primary Care Provider Unavailabl e Note from [facility],non-owned Affiliates and Associated Physician Practices is amultiple site organization consisting of ambulatory clinics and hospital sitesin [place], [place], [place] and [place]. This disclosure is being madepursuant to the Care Everywhere program and may not contain all information available regarding this patient. Last updated 17.[facility] Allergies No known active allergies Medications [...] Comments Blood Pressure 117/79 02/22/2016 1:30 PM TRAY DRIER Pulse 88 02/22/2016 2:00 PM TRAY DRIER Temperature 36.2 C (97.2 F) 02/22/2016 1:30 PM TRAY DRIER Respiratory Rate 16 02/22/2016 2:00 PM TRAY DRIER Oxygen Saturation 97% 02/22/2016 2:00 PM TRAY DRIER Inhaled Oxygen Concentration - - Weight 36.4 [...] GROSS EXAM PATHOLOGY (STL) (02/22/2016 11:45 AM TRAY DRIER) Case Report Surgical Pathology Report Case: [id number] Authorizing Provider: Kathleen Fernandez MD Collected: 02/22/2016 11:45 AM Ordering Location: [facility] Received: 02/22/2016 12:06 PM Pathologist: Myranda Driscoll MD Specimen: Tonsil(s) 02/22/2016 1:59 PM [facility] Final Diagnosis GROSS DIAGNOSIS: PALATINE TONSILS. 02/22/2016 1:59 PM [facility] Clinical History The patient is a 15-year-old boy with chronic tonsillitis. 02/22/2016 1:59 PM [facility] Gross Description Submitted fresh in [...] sections are taken. (CT/alj) 02/22/2016 1:59 PM [facility] Embedded Images 02/22/2016 1:59 PM [facility] Pathology/Cytolo gy SPECIMEN FROM TONSIL / Unknown 02/22/2016 11:45 AM TRAY DRIER 02/22/2016 12:06 PM TRAY DRIER Kathleen Fernandez MD LAB - PATHOLOGY/CYTO LOGY ORDERABLES [facility] [address] [place] [address]
--- OUTSIDE RECORDS SUMMARY | 2024-04-01 07:52 | XMS_ITS | Clinical Summary ---
Author Organization [facility] Care Team Providers Care Solar Thermal Technician Name Role Phone Unavailable Primary Care Provider Unavailabl e Social History Tobacco Use Types Packs/Day Years Used Date Smoking Tobacco: Never Assessed Sex and Gender Information Value Date Recorded Sex Assigned at Not on file Legal Sex Male 3:18 PM FIELD NURSE CASE MANAGER Gender Identity Not on file Sexual Orientation [...]
[2024-04-01] MEDS: KETOROLAC 30 MG/ML VIAL (*BKC) IM (08:07)
[2024-04-01] MEDS: METOCLOPRAMIDE HCL INJ 10 MG/2 ML VIAL IM (08:08)
[2024-04-01] MEDS: diphenhydrAMINE HCl INJ 50 MG/ML VIAL 25 MG IM (08:08)
[2024-04-01 08:15] VITALS: BP 115/76; PULSE 70; RESP 17; O2SAT 99
== END 2024-04-01 08:17 | disposition home or self-care (01) ==
LOC: ANHED 04-01 07:51
PROVIDERS: Physician Assistant; Emergency Provider Emergency Medicine; PCP Internal Medicine
DX: M54.2 Cervicalgia (principal); K21.9 Gastro-esophageal reflux disease without esophagitis; J45.909 Unspecified asthma, uncomplicated; F41.8 Other specified anxiety disorders; F17.290 Nicotine dependence, other tobacco product, uncomplicated; Z20.822 Contact with and (suspected) exposure to COVID-19
CPT/HCPCS: 36415; 71046; 80053; 83690; 84484; 85025; 85610; 85730; 87637; 93005; 96372; 99284; J1200; J1885; J2765

== ENCOUNTER 2024-04-24 19:19 | Emergency (ER) | payer OTHER, SELFPAY ==
[2024-04-24 19:34] VITALS: BP 107/62; PULSE 75; RESP 13; TEMP 36.4; O2SAT 99
[2024-04-24] MEDS: SODIUM CHLORIDE 0.9% IV 1,000 ML 999 ML IV CONT (21:47)
[2024-04-24] MEDS: METOCLOPRAMIDE HCL INJ 10 MG/2 ML VIAL IV PUSH (21:48)
[2024-04-24] MEDS: diphenhydrAMINE HCl INJ 50 MG/ML VIAL 25 MG IV PUSH (21:48)
[2024-04-24] MEDS: ACETAMINOPHEN 500 MG TABLET 1000 MG PO (21:48)
--- NOTE | 2024-04-24 21:49 | ED.HA ---
HPI - Headache General Chief Complaint: Headache Stated Complaint: neck/ head pain Time Seen by Provider: 04/24/24 20:55 Source: patient Mode of arrival: ambulatory Limitations: no limitations History of Present Illness HPI Narrative: This is a 23 year old male that presents to the ER for headache and neck pain. Ongoing since this morning. Reports he took Ibuprofen with little improvement. He was recently seen in the ER for same, has run out of his cyclobenzaprine. Denies fever, vision changes, vomiting, focal numbness or weakness. Related Data Allergies Allergy/AdvReac Type Severity Reaction Status Date / Time No Known Allergies Allergy Verified 04/01/24 04:58 Review of Systems Review of Systems: CONSTITUTIONAL: Denies fever EYES: Denies visual changes GASTROINTESTINAL: Denies vomiting MUSCULOSKELETAL: Reports myalgia. NEUROLOGIC: Denies numbness, or weakness. All systems reviewed & are unremarkable except as noted in HPI and below PMFSH Past Medical History Medical History Anxiety Suicidal ideation Self-harm Depression Finger fracture GERD (gastroesophageal reflux disease) Asthma Surgical History Surgical History History of tonsillectomy Family History Family History Father Asthma Mother Asthma Depression Anxiety Grandparent Diabetes mellitus Hypertension Social History Social History Smoking status: Current every day smoker Tobacco type: e-cigarettes/vaping Substance use: current Substance use type: marijuana Other substance usage details: Occasionally smokes marijuana for depression and anxiety Do You Feel Safe in your Home?: Yes Lack of Transportation: No Lack of Food: Never True Current Housing: I Have Housing Concerned About Future Housing: No Difficulty Paying Gas/Electric Bills: No Difficulty Paying for Meds: No Currently Unemployed: YES Education: High School Diploma/GED Difficulty w/ Childcare or Family Care: No Living arrangements: with family Gender identity (if verbalized by the patient): Male Exam Narrative: GENERAL: Well-appearing, well-nourished, and in no acute distress. HEAD: Normocephalic, atraumatic. EYES: PERRLA and EOMI. ENT: Nares clear, no rhinorrhea or epistaxis. Mucous membranes moist. Oropharynx without tonsillar hypertrophy exudate or other lesions. Bilateral TMs pearly henry non-bulging NECK: Supple. No adenopathy or masses. Normal ROM CHEST: Clear to auscultation. No respiratory distress. No wheezes rales or rhonchi HEART: Regular rate and rhythm. No murmur heard. Normal peripheral pulses. EXTREMITIES: Normal range of motion. No edema. Strength equal in bilateral upper and lower extremities (5/5) SKIN: Warm, dry, no rash. NEURO: No focal deficits. Alert and oriented x3. CN II-XII grossly intact PSYCH: Normal mood and affect Course Course Emergency Course: patient updated on workup and agrees with plan of care Vital Signs Vital signs: Vital Signs Temperature 97.5 F L 04/24/24 19:34 Pulse Rate 75 04/24/24 19:34 Respiratory Rate 13 04/24/24 19:34 Blood Pressure 107/62 04/24/24 19:34 Pulse Oximetry 99 04/24/24 19:34 Oxygen Delivery Room Air 04/24/24 19:34 Temperature 97.5 F L 04/24/24 19:34 Pulse Rate 57 L 04/25/24 00:15 Respiratory Rate 16 04/25/24 00:15 Blood Pressure 108/58 L 04/25/24 00:15 Pulse Oximetry 98 04/25/24 00:15 Oxygen Delivery Room Air 04/24/24 19:34 MDM - Headache MDM Narrative Medical decision making narrative: Patient presents the emergency department for headache and neck pain. Ongoing since this morning. Patient is neurologically intact. His vitals are stable. CT brain and cervical spine without acute findings. Patient given IV fluids, Reglan, Benadryl and Tylenol. Resting comfortably. Updated on his workup. He is to follow up with primary provider. He was also given follow-up with Neurology for his headaches. He was given warnings to return to the ER Differential Diagnosis Differential diagnosis: Likely migraine, tension headache, subarachnoid hemorrhage, headache, sinusitis and other (Muscle strain, muscle spasm) Imaging Data Radiologist's impression: CT brain: No evidence of acute intracranial pathology CT cervical spine: No evidence of acute cervical spine pathology. Extensive dental caries Critical Care Time Critical Care Time Critical Care Time: No Discharge Plan Discharge Clinical Impression: Neck pain Headache Qualifiers: Headache type: unspecified Headache chronicity pattern: acute headache Intractability: not intractable Qualified Code(s): R51.9 - Headache, unspecified Patient Disposition: Home, Self-Care Condition: Improved Instructions: General Headache (ED), Acute Neck Pain (ED) Additional Instructions: Return to the emergency department if you experience fever, vision changes, chest pain, shortness of breath, abdominal pain with nausea and vomiting, weakness, numbness, or any other symptoms that are concerning to you. Rest. Remain well hydrated. Over the counter pain medication as needed. Muscle relaxer as needed for pain Follow up with primary care doctor Patient Language: Sinhala Prescriptions: New cyclobenzaprine 10 mg tablet 10 mg PO TID PRN (Reason: muscle spasm) Qty: 14 0RF No Action albuterol sulfate 90 mcg/actuation HFA aerosol inhaler 2 puff inhalation Q4H PRN (Reason: shortness of breath or wheezing) Qty: 8.5 3RF methocarbamol 750 mg tablet 750 mg PO TID Qty: 30 0RF ibuprofen 600 mg tablet 600 mg PO TID PRN (Reason: fever or pain) Qty: 30 0RF ondansetron 4 mg tablet,disintegrating 4 mg PO Q8H PRN (Reason: nausea and vomiting) Qty: 10 0RF cyclobenzaprine 10 mg tablet 10 mg PO TID PRN (Reason: muscle spasm) Qty: 20 0RF naproxen 375 mg tablet 375 mg PO BID Qty: 14 0RF diclofenac potassium 50 mg tablet 50 mg PO TID PRN (Reason: pain) Qty: 30 0RF cyclobenzaprine 10 mg tablet 10 mg PO TID PRN (Reason: muscle spasm) Qty: 21 0RF hydroxyzine HCl 25 mg tablet 25 mg PO DAILY PRN (Reason: anxiety) Qty: 90 3RF Follow-up/Referrals: Papo Farris MD [Physician] - Thiago Coy DO [Primary Care Provider] -
[2024-04-25 00:15] VITALS: BP 108/58; PULSE 57; RESP 16; O2SAT 98
== END 2024-04-25 01:02 | disposition home or self-care (01) ==
PROVIDERS: Emergency Provider Physician Assistant; PCP Internal Medicine
DX: R51.9 Headache, unspecified (principal); M54.2 Cervicalgia; J45.909 Unspecified asthma, uncomplicated; K21.9 Gastro-esophageal reflux disease without esophagitis; F41.9 Anxiety disorder, unspecified; F32.A Depression, unspecified; F17.290 Nicotine dependence, other tobacco product, uncomplicated; Z79.899 Other long term (current) drug therapy
CPT/HCPCS: 70450; 72125; 96361; 96374; 96375; 99284; A9270; J1200; J2765; J7030

== ENCOUNTER 2024-07-15 10:45 | Outpatient (CLI) | payer OTHER, SELFPAY ==
--- NOTE | ~2024-07-15 | MR_ITS ---
MRI of the brain Clinical History: Headache Technique: Axial and sagittal T1-weighted images were acquired. These were followed by axial T2-weigh braden, diffusion weighted, gradient, and FLAIR images. Following intravenous administration of 11 cc Pr oHance gadolinium, T1-weighted fat-sat imaging was performed in the axial and coronal planes. Findings: No abnormal signal seen in the brain parenchyma. No acute infarct, intracranial hemorrhage, or mass lesion. Ventricles and subarachnoid spaces are unremarkable. Orbits are unremarkable. Paranasal sinuses and m astoid areas are clear. Major intracranial flow voids are intact. Sagittal midline structures are intact. No abnormal postcontrast enhancement identified. IMPRESSION: Normal exam. Reviewed, dictated and finalized at location M. IMPRESSION: Normal exam.
--- OUTSIDE RECORDS SUMMARY | 2024-07-15 10:52 | XMS_ITS | Clinical Summary ---
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
--- OUTSIDE RECORDS SUMMARY | 2024-07-15 10:52 | XMS_ITS | Clinical Summary ---
Author Organization [facility] Address [address] [place] [address] Care Team Providers Care Crime Lab Analyst Name Role Phone Unavailable Primary Care Provider Unavailabl e Source Comments [facility],non-owned Affiliates and Associated Physician Practices is amultiple site organization consisting of ambulatory clinics and hospital sitesin [place], [place], [place] and [place]. This disclosure is being madepursuant to the Care Everywhere program and may not contain all information available regarding this patient. Last updated 17.[facility] [email or web address] Allergies No known active allergies Medications * Be aware that medications may not be up to date on this document. Alwaysverify current medications with the patient. amphetamine-dex troamphetamine (ADDERALL) 5 MG tablet Take 5 mg [...] at Not on file Legal Sex Male 10:55 AM CDT Gender Identity Not on file Sexual Orientation Not on file Last Filed Vital Signs Vital Sign Reading Time Taken Comments Blood Pressure 117/79 02/22/2016 1:30 PM TUNNEL WORKER Pulse 88 02/22/2016 2:00 PM TUNNEL WORKER Temperature 36.2 C (97.2 F) 02/22/2016 1:30 PM TUNNEL WORKER Respiratory Rate 16 02/22/2016 2:00 PM TUNNEL WORKER Oxygen Saturation 97% 02/22/2016 2:00 PM TUNNEL WORKER Inhaled Oxygen Concentration - - Weight 36.4 kg (80 lb 4 oz) 11/13/2018 2:44 PM C DT Height 157.6 cm (5' 2.05 ) 11/13/2018 2:44 PM CD T Body Mass Index 14.66 11/13/2018 2:44 PM CDT Plan of Treatment Health Maintenance Due Date Last Done Comments HIV SCREENING 2017 HPV VACCINE (1 - Male 3-dose series) 2017 MENINGOCOCCAL (Group B) VACC INE SHARED DECISION-MAKING (1 of 2 - Standard) 2018 HEPATITIS C SCREENING 12/04/2020 DTAP/TDAP/TD VACCINES (1 - Tdap) 2021 HEPATITIS B VACCINE (1 of 3 - 19+ 3-dose series) 2021 COVID-19 VACCINE (1 - 2023-2 5 season) 2023 DEPRESSION SCREENING 02/25/2024 INFLUENZA VACCINE (Season Ended) 2024 ZOSTER VACCINE (1 of 2) 2052 HIB VACCINE Aged Out No longer eligi ble based on patient's age to complete this topic MENINGOCOCCAL GROUPS A/C/Y/W VACCINE Aged Out No longer eligible b ased on patient's age to complete this topic PNEUMOCOCCAL VACCINE Aged Out No long er eligible based on patient's age to complete this topic Insurance [facility]
== END 2024-07-15 10:46 | disposition home or self-care (01) ==
PROVIDERS: PCP Internal Medicine; Visit Provider Clinical Nurse Specialist
DX: R51.9 Headache, unspecified (principal); M54.2 Cervicalgia; Z82.79 Family history of other congenital malformations, deformations and chromosomal abnormalities
CPT/HCPCS: 70553; A9579

== ENCOUNTER 2024-08-19 20:17 | Emergency (ER) | payer OTHER, SELFPAY ==
[2024-08-19] VITALS (7 sets, daily range): BP systolic 123–145; BP diastolic 77–86; PULSE 58–79; RESP 14–19; TEMP 36.6–36.8; O2SAT 99–100
--- NOTE | ~2024-08-19 | CT_ITS ---
CT of the Abdomen and Pelvis: Indication: Abdominal pain Technique: 2.5 mm axial scans were obtained through the abdomen and pelvis following intravenous adm inistration of 100 cc of Omnipaque 350. Dose reduction technique was used on this scan by utilizing a utomated exposure control and iterative reconstruction technique. The dose-length product (DLP) was 2 04.91 mGy-cm. Findings: Scans through the lung bases are unremarkable. The liver, spleen, pancreas, gallbladder, adrenals and kidneys are within normal limits. No evidence of aortic aneurysm. No lymphadenopathy. No bowel obstruction or bowel wall thickening. There is no evidence to suggest acute appendicitis. Images through the pelvis were performed. Urinary bladder unremarkable. No pelvic mass seen. Trace pe lvic free fluid noted. Impression: Trace pelvic free fluid, otherwise unremarkable exam. Reviewed, dictated and finalized at location . Impression: Trace pelvic free fluid, otherwise unremarkable exam.
[2024-08-19 23:24] LABS: Basophils Absolute Auto 0.1 K/mm3 (0.0-0.1); Basophils Percent Auto 0.4 % (0.2-1.2); Eosinophils Absolute Auto 0.1 K/mm3 (0-0.3); Eosinophils Percent Auto 0.6 % (0-4.4); Hematocrit 45.3 % (42.0-52.0); Hemoglobin 14.9 g/dL (14.0-18.0); Immature Granulocyte Absolute 0.06 K/mm3 (0.00-0.031); Immature Granulocyte Percent A 0.4 % (0-0.5); Lymphocytes Absolute Auto 1.65 K/mm3 (0.9-3.2); Lymphocytes Percent Auto 10.5 % (18.3-44.2); Mean Corpuscular HGB Conc 32.9 g/dl (32-36); Mean Corpuscular Hemoglobin 28.3 pg (26-34); Mean Platelet Volume 10.1 fl (7.4-10.4); Monocytes Percent Auto 6.4 % (2.6-8.5); Neutrophils Absolute Auto 12.9 K/mm3 (1.3-6.7); Neutrophils Percent Auto 81.7 % (45.5-73.1); Platelet Count Result 296 k/mm3 (150-375); Red Blood Count 5.27 M/mm3 (4.6-6.20); Red Cell Distribution Width 14.6 % (11.5-14.5); White Blood Count 15.8 K/mm3 (4.5-10.0)
[2024-08-19 23:32] LABS: Alanine Aminotransferase 16 U/L (6-50); Alkaline Phosphatase 79 U/L (38-126); Anion Gap 12 mmol/L (4-12); Aspartate Amino Transferase 23 U/L (17-59); Bilirubin,Total 0.7 mg/dL (0.2-1.3); Blood Urea Nitrogen 6 mg/dL (9-20); Calcium 10.1 mg/dL (8.4-10.2); Carbon Dioxide 26 mmol/L (22-30); Chloride 101 mmol/L (98-107); Estimated CRCL calculation 106 ml/min; Estimated Glomerular Filt Rate > 60; Glucose 111 mg/dL (65-110); Lipase 115 U/L (23-300); Potassium 3.8 mmol/L (3.4-5.0); Sodium 139 mmol/L (137-145); Total Protein 8.4 g/dL (6.3-8.2)
[2024-08-20] VITALS (27 sets, daily range): BP systolic 125–132; BP diastolic 73–88; PULSE 51–70; RESP 12–22; TEMP 36.5; O2SAT 94–100
[2024-08-20] MEDS: ONDANSETRON INJ 4 MG/2 ML VIAL IV PUSH (00:34)
[2024-08-20] MEDS: SODIUM CHLORIDE 0.9% IV 1,000 ML 999 ML IV CONT (00:34)
[2024-08-20] MEDS: MORPHINE SULFATE (*CRX) 4 MG/ML INJ IV PUSH (00:34)
[2024-08-20 00:36] LABS: Add Urine Microscopic? NO; Appearance Urine Clear (Clear); Bilirubin Urine Negative (Negative); Blood Urine Negative (Negative); Color Urine Yellow (Yellow); Glucose Urine UA Negative (Negative); Ketones Urine Negative (Negative); Leukocyte Esterase Ur Negative LEU/UL (Negative); Nitrate Urine Negative (Negative); Protein Urine Negative (Negative); Specific Grav Ur 1.012 (1.001-1.035); Urobilinogen Urine 0.2 mg/dL (<2.0); pH Urine 7.5 (5.0-9.0)
--- NOTE | 2024-08-20 00:38 | ED_ITS ---
HPI - Abdominal Pain General Chief Complaint: Abdominal Pain <Linda Murphy PA-C - Last Filed: 08/20/24 02:52> Stated Complaint: abdominal pain <Linda Murphy PA-C - Last Filed: 08/20/24 02:52> Time Seen by Provider: 08/19/24 23:32 <Linda Murphy PA-C - Last Filed: 08/20/24 02:52> Source: patient <JENNIE Woods Last Filed: 08/20/24 02:52> Mode of arrival: ambulatory <Linda Murphy PA-C - Last Filed: 08/20/24 02:52> Limitations: no limitations <Linda Murphy PA-C - Last Filed: 08/20/24 02:52> History of Present Illness HPI narrative: Patient is a 23-year-old male who presents the ED with report of lower abdominal pain. Patient reports he developed pain around noon today. States it has progressively worsened throughout the day. Present throughout his lower abdomen. Does radiate slightly to his upper abdomen. Reports nausea and 1 episode of emesis after having his blood drawn in the ED. Reports subjective fevers. Denies diarrhea, constipation, urinary complaints. <Linda Murphy PA-C - Last Filed: 08/20/24 02:52> Related Data Allergies/Adverse Reactions: Allergies Allergy/AdvReac Type Severity Reaction Status Date / Time No Known Allergies Allergy Verified 08/19/24 20:39 <JENNIE Woods Last Filed: 08/20/24 02:52> Review of Systems 2 Review of Systems: All systems reviewed & are unremarkable except as noted in HPI. <Linda Murphy PA-C - Last Filed: 08/20/24 02:52> All systems reviewed & are unremarkable except as noted in HPI and below < Linda Murphy PA-C - Last Filed: 08/20/24 02:52> PMFSH Past Medical History Medical History: Medical History Establishing care with new doctor, encounter for Injury of left leg Viral illness Exposure to parasitic disease Anxiety Suicidal ideation Self-harm Depression Finger fracture GERD (gastroesophageal reflux disease) Asthma <Linda Murphy PA-C - Last Filed: 08/20/24 02:52> Surgical History Surgical History: Surgical History History of tonsillectomy <Linda Murphy PA-C - Last Filed: 08/20/24 02:52> Family History Family History: Family History Father Asthma Mother Asthma Depression Anxiety Grandparent Diabetes mellitus Hypertension <Linda Mruphy PA-C - Last Filed: 08/20/24 02:52> Social History Social History: Social History Smoking status: Current every day smoker Tobacco type: e-cigarettes/vaping Substance use: current Substance use type: marijuana Other substance usage details: Occasionally smokes marijuana for depression and anxiety Do You Feel Safe in your Home?: Yes Lack of Transportation: No Lack of Food: Never True Current Housing: I Have Housing Concerned About Future Housing: No Difficulty Paying Gas/Electric Bills: No Difficulty Paying for Meds: No Currently Unemployed: YES Education: High School Diploma/GED Difficulty w/ Childcare or Family Care: No Living arrangements: with family Gender identity (if verbalized by the patient): Male <Linda Murphy PA-C - Last Filed: 08/20/24 02:52> Exam 2 Narrative: GENERAL: Well appearing, thin, non-toxic, in no acute distress. HEAD: Normocephalic, atraumatic. RESPIRATORY: Airway patent, respirations nonlabored. Clear to auscultation bilaterally, no rales, rhonchi, wheezing. CARDIOVASCULAR: Regular rate and rhythm without murmurs, rubs, or gallops. ABDOMINAL: Soft, mild diffuse tenderness throughout lower abdomen, worst in RLQ, voluntary guarding, nondistended. Normoactive BS. MUSCULOSKELETAL: Moves all extremities. No gross deformities. SKIN: Warm, dry, normal color. NEURO: A&O X3. Speech clear. Cranial nerves II-XII grossly intact. Steady gait. No ataxic movements. PSYCHIATRIC: Appropriate mood and affect. Normal interaction. <Linda Murphy PA-C - Last Filed: 08/20/24 02:52> Course Vital Signs Vital signs: Vital Signs Temperature 98.3 F 08/19/24 20:36 Pulse Rate 79 08/19/24 20:36 Respiratory Rate 14 08/19/24 20:36 Blood Pressure 123/82 08/19/24 20:36 Pulse Oximetry 100 08/19/24 20:36 Oxygen Delivery Room Air 08/19/24 20:36 Temperature 97.7 F 08/20/24 04:22 Pulse Rate 70 08/20/24 04:22 Respiratory Rate 12 08/20/24 04:22 Blood Pressure 129/88 08/20/24 04:22 Pulse Oximetry 94 08/20/24 04:22 Oxygen Delivery Room Air 08/19/24 20:36 <Linda Murphy PA-C - Last Filed: 08/20/24 02:52> Vital Signs Temperature 98.3 F 08/19/24 20:36 Pulse Rate 79 08/19/24 20:36 Respiratory Rate 14 08/19/24 20:36 Blood Pressure 123/82 08/19/24 20:36 Pulse Oximetry 100 08/19/24 20:36 Oxygen Delivery Room Air 08/19/24 20:36 Temperature 97.7 F 08/20/24 04:22 Pulse Rate 70 08/20/24 04:22 Respiratory Rate 12 08/20/24 04:22 Blood Pressure 129/88 08/20/24 04:22 Pulse Oximetry 94 08/20/24 04:22 Oxygen Delivery Room Air 08/19/24 20:36 <Daniel Pantoja MD - Last Filed: 08/20/24 05:19> MDM - Abdominal Pain MDM Narrative Medical decision making narrative: Patient presented to ED with lower abdominal pain that began today, worsening throughout the day. Vital signs stable upon arrival. Patient afebrile. CBC with white blood cell count of 15.8. Neutrophil predominance. No bandemia. CMP is unremarkable. UA is clear. CT scan of abdomen/pelvis was obtained. Care signed out to Dr. Pantoja at shift change pending stat rad imaging. < Linda Murphy PA-C - Last Filed: 08/20/24 02:52> Patient presented to ED with lower abdominal pain that began today, worsening throughout the day. Vital signs stable upon arrival. Patient afebrile. CBC with white blood cell count of 15.8. Neutrophil predominance. No bandemia. CMP is unremarkable. UA is clear. CT scan of abdomen/pelvis was obtained. Care signed out to Dr. Pantoja at shift change pending stat rad imaging. --- 23-year-old male presents to the emergency department for evaluation for lower abdominal pain. Patient is afebrile but does have a leukocytosis of 15.8 hemoglobin of 14.9. Patient has no significant acute abnormalities on his CMP UA was negative for infection, CT showed evidence of enteritis. Patient will be discharged home with instructions for clear liquid diet and Zofran for nausea control. All questions concerns were addressed patient was comfortable the plan for discharge and close follow-up. <Daniel Pantoja MD - Last Filed: 08/20/24 05:19> Medical Records Attestation: I reviewed the patient's medical records. <Linda Murphy PA-C - Last Filed: 08/20/24 02:52> Lab Data Attestation: I reviewed the patient's lab results. <Linda Murphy PA-C - Last Filed: 08/20/24 02:52> Result diagrams: 08/19/24 23:14 08/19/24 23:14 <Linda Murphy PA-C - Last Filed: 08/20/24 02:52> Labs: Lab Results 08/19/24 08/20/24 Range/Units 23:14 00:26 WBC 15.8 H (4.5-10.0) K/mm3 RBC 5.27 (4.6-6.20) M/mm3 Hgb 14.9 (14.0-18.0) g/dL Hct 45.3 (42.0-52.0) % MCV 86.0 (80-100) fl MCH 28.3 (26-34) pg MCHC 32.9 (32-36) g/dl RDW 14.6 H (11.5-14.5) % Plt Count 296 (150-375) k/mm3 MPV 10.1 (7.4-10.4) fl Immature Gran % (Auto) 0.4 (0-0.5) % Neut % (Auto) 81.7 H (45.5-73.1) % Lymph % (Auto) 10.5 L (18.3-44.2) % [place] % (Auto) 6.4 (2.6-8.5) % Eos % (Auto) 0.6 (0-4.4) % Baso % (Auto) 0.4 (0.2-1.2) % Lymph # (Auto) 1.65 (0.9-3.2) K/mm3 [place] # (Auto) 1.0 H (0.1-0.6) K/mm3 Eos # (Auto) 0.1 (0-0.3) K/mm3 Baso # (Auto) 0.1 (0.0-0.1) K/mm3 Abs Immat Gran (auto) 0.06 H (0.00-0.031) K/mm3 Absolute Neuts (auto) 12.9 H (1.3-6.7) K/mm3 Absolute Nucleated RBC 0.000 (0.0-0.012) K/mm3 Nucleated RBC % 0.0 (0.0-0.2) % Sodium 139 (137-145) mmol/L Potassium 3.8 (3.4-5.0) mmol/L Chloride 101 (98-107) mmol/L Carbon Dioxide 26 (22-30) mmol/L Anion Gap 12 (4-12) mmol/L BUN 6 L D (9-20) mg/dL Creatinine 0.67 L (0.7-1.3) mg/dL Estim Creat Clear Calc 106 ml/min Estimated GFR > 60 (59 - ) Glucose 111 H (65-110) mg/dL Calcium 10.1 (8.4-10.2) mg/dL Total Bilirubin 0.7 (0.2-1.3) mg/dL AST 23 (17-59) U/L ALT 16 (6-50) U/L Alkaline Phosphatase 79 (38-126) U/L Total Protein 8.4 H (6.3-8.2) g/dL Albumin 5.0 (3.5-5.1) g/dL Lipase 115 (23-300) U/L Urine Color Yellow (Yellow) Urine Appearance Clear (Clear) Urine pH 7.5 (5.0-9.0) Ur Specific [place] 1.012 (1.001-1.035) Urine Protein Negative (Negative) mg/dL Urine Glucose (UA) Negative (Negative) mg/dL Urine Ketones Negative (Negative) mg/dL Ur Blood (Man) Negative (Negative) Urine Nitrate Negative (Negative) Urine Bilirubin Negative (Negative) Urine Urobilinogen 0.2 (<2.0) mg/dL Leukocyte Esterase Rfl Negative (Negative) OLVIN/UL <Linda Murphy PA-C - Last Filed: 08/20/24 02:52> Lab Results 08/19/24 08/20/24 Range/Units 23:14 00:26 WBC 15.8 H (4.5-10.0) K/mm3 RBC 5.27 (4.6-6.20) M/mm3 Hgb 14.9 (14.0-18.0) g/dL Hct 45.3 (42.0-52.0) % MCV 86.0 (80-100) fl MCH 28.3 (26-34) pg MCHC 32.9 (32-36) g/dl RDW 14.6 H (11.5-14.5) % Plt Count 296 (150-375) k/mm3 MPV 10.1 (7.4-10.4) fl Immature Gran % (Auto) 0.4 (0-0.5) % Neut % (Auto) 81.7 H (45.5-73.1) % Lymph % (Auto) 10.5 L (18.3-44.2) % [place] % (Auto) 6.4 (2.6-8.5) % Eos % (Auto) 0.6 (0-4.4) % Baso % (Auto) 0.4 (0.2-1.2) % Lymph # (Auto) 1.65 (0.9-3.2) K/mm3 [place] # (Auto) 1.0 H (0.1-0.6) K/mm3 Eos # (Auto) 0.1 (0-0.3) K/mm3 Baso # (Auto) 0.1 (0.0-0.1) K/mm3 Abs Immat Gran (auto) 0.06 H (0.00-0.031) K/mm3 Absolute Neuts (auto) 12.9 H (1.3-6.7) K/mm3 Absolute Nucleated RBC 0.000 (0.0-0.012) K/mm3 Nucleated RBC % 0.0 (0.0-0.2) % Sodium 139 (137-145) mmol/L Potassium 3.8 (3.4-5.0) mmol/L Chloride 101 (98-107) mmol/L Carbon Dioxide 26 (22-30) mmol/L Anion Gap 12 (4-12) mmol/L BUN 6 L D (9-20) mg/dL Creatinine 0.67 L (0.7-1.3) mg/dL Estim Creat Clear Calc 106 ml/min Estimated GFR > 60 (59 - ) Glucose 111 H (65-110) mg/dL Calcium 10.1 (8.4-10.2) mg/dL Total Bilirubin 0.7 (0.2-1.3) mg/dL AST 23 (17-59) U/L ALT 16 (6-50) U/L Alkaline Phosphatase 79 (38-126) U/L Total Protein 8.4 H (6.3-8.2) g/dL Albumin 5.0 (3.5-5.1) g/dL Lipase 115 (23-300) U/L Urine Color Yellow (Yellow) Urine Appearance Clear (Clear) Urine pH 7.5 (5.0-9.0) Ur Specific [place] 1.012 (1.001-1.035) Urine Protein Negative (Negative) mg/dL Urine Glucose (UA) Negative (Negative) mg/dL Urine Ketones Negative (Negative) mg/dL Ur Blood (Man) Negative (Negative) Urine Nitrate Negative (Negative) Urine Bilirubin Negative (Negative) Urine Urobilinogen 0.2 (<2.0) mg/dL Leukocyte Esterase Rfl Negative (Negative) OLVIN/UL <Daniel Pantoja MD - Last Filed: 08/20/24 05:19> Imaging Data Attestation: I personally reviewed and interpreted this imaging study as follows: < Linda Murphy PA-C - Last Filed: 08/20/24 02:52> Radiologist's impression: Overnight read Mild wall thickening of small bowel, correlate for enteritis <Daniel Pantoja MD - Last Filed: 08/20/24 05:19> Discharge Plan Discharge Clinical Impression: Abdominal pain, RLQ <Linda Murphy PA-C - Last Filed: 08/20/24 02:52> Patient Disposition: Home <Linda Murphy PA-C - Last Filed: 08/20/24 02:52> Condition: Stable <JENNIE Woods Last Filed: 08/20/24 02:52> Instructions: Antibiotic Form, Clear Liquid Diet (ED), Acute Abdominal Pain (ED) <JENNIE Woods Last Filed: 08/20/24 02:52> Additional Instructions: Zofran as needed for nausea control. Clear liquid diet for the next 1-3 days. Advance to bland diet as tolerated. Have close follow-up with your primary care physician. If you have any worsening symptoms and please call or return to the emergency department <Linda Murphy PA-C - Last Filed: 08/20/24 02:52> Patient Language: Indonesian <JENNIE Woods Last Filed: 08/20/24 02:52> Prescriptions: New ondansetron 4 mg tablet,disintegrating 4 mg PO Q8H PRN (Reason: nausea and vomiting) Qty: 14 0RF No Action albuterol sulfate 90 mcg/actuation HFA aerosol inhaler 2 puff inhalation Q4H PRN (Reason: shortness of breath or wheezing) Qty: 8.5 3RF cyclobenzaprine 10 mg tablet 10 mg PO TID PRN (Reason: muscle spasm) Qty: 14 0RF diclofenac potassium 50 mg tablet 50 mg PO TID PRN (Reason: pain) Qty: 30 0RF hydroxyzine HCl 25 mg tablet 25 mg PO DAILY PRN (Reason: anxiety) Qty: 90 3RF <JENNIE Woods Last Filed: 08/20/24 02:52> Follow-up/Referrals: Thiago Coy DO [Primary Care Provider] - <Linda Murphy PA-C - Last Filed: 08/20/24 02:52>
--- NOTE | 2024-08-20 01:01 | PC.NURSE ---
pt to ct via stretcher
== END 2024-08-20 04:24 | disposition home or self-care (01) ==
PROVIDERS: Emergency Medicine; Emergency Provider Physician Assistant; PCP Internal Medicine
DX: R10.31 Right lower quadrant pain (principal); J45.909 Unspecified asthma, uncomplicated; F32.A Depression, unspecified; F41.9 Anxiety disorder, unspecified; K21.9 Gastro-esophageal reflux disease without esophagitis; F17.290 Nicotine dependence, other tobacco product, uncomplicated
CPT/HCPCS: 36415; 74177; 80053; 81003; 83690; 85025; 96361; 96374; 96375; 99284; J2270; J2405; J7030; Q9967

== ENCOUNTER 2024-09-14 07:06 | Emergency (ER) | payer OTHER, SELFPAY ==
--- OUTSIDE RECORDS SUMMARY | 2024-09-14 07:08 | XMS_ITS | Clinical Summary ---
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
[2024-09-14 07:23] VITALS: BP 118/84; PULSE 72; RESP 16; TEMP 36.9; O2SAT 99
[2024-09-14 07:30] LABS: Hematocrit 43.5 % (42.0-52.0); Hemoglobin 14.2 g/dL (14.0-18.0); Immature Granulocyte Percent A 0.4 % (0-0.5); Lymphocytes Absolute Auto 1.38 K/mm3 (0.9-3.2); Mean Corpuscular HGB Conc 32.6 g/dl (32-36); Mean Corpuscular Hemoglobin 28.1 pg (26-34); Mean Corpuscular Volume 86.1 fl (80-100); Nucleated Red Blood Cells Absolute Auto 0.000 K/mm3 (0.0-0.012); Nucleated Red Blood Cells Perc 0.0 % (0.0-0.2); Platelet Count Result 283 k/mm3 (150-375); Red Blood Count 5.05 M/mm3 (4.6-6.20); White Blood Count 11.1 K/mm3 (4.5-10.0)
--- OUTSIDE RECORDS SUMMARY | 2024-09-14 07:31 | XMS_ITS | Clinical Summary ---
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
[2024-09-14 07:48] LABS: Add Urine Microscopic? NO; Appearance Urine Clear (Clear); Glucose Urine UA Negative (Negative); Leukocyte Esterase Ur Negative LEU/UL (Negative); Nitrate Urine Negative (Negative); Specific Grav Ur 1.009 (1.001-1.035)
[2024-09-14 07:50] LABS: Alanine Aminotransferase 19 U/L (6-50); Albumin Level 4.7 g/dL (3.5-5.1); Alkaline Phosphatase 77 U/L (38-126); Anion Gap 9 mmol/L (4-12); Aspartate Amino Transferase 35 U/L (17-59); Bilirubin,Total 0.4 mg/dL (0.2-1.3); Blood Urea Nitrogen 17 mg/dL (9-20); Calcium 10.1 mg/dL (8.4-10.2); Carbon Dioxide 26 mmol/L (22-30); Chloride 102 mmol/L (98-107); Estimated CRCL calculation 83 ml/min; Estimated Glomerular Filt Rate > 60; Glucose 119 mg/dL (65-110); Lipase 159 U/L (23-300); Potassium 3.9 mmol/L (3.4-5.0); Sodium 137 mmol/L (137-145); Total Protein 8.1 g/dL (6.3-8.2)
--- NOTE | 2024-09-14 08:21 | ED_ITS ---
HPI - Nausea/Vomiting/Diarrhea General Chief complaint: Nausea/Vomiting/Diarrhea Stated complaint: I've got blood in my vomit Time Seen by Provider: 09/14/24 07:53 Source: patient Mode of arrival: ambulatory Limitations: no limitations History of Present Illness HPI Narrative: Patient presents with report of bright red blood in his vomit starting at 5:00 a.m.. Patient notes he has had 4-5 episodes. He denies any coffee-ground emesis. He denies feeling nauseated now but he did just vomit prior to me entering the room. No prior abdominal surgeries and he states this has never happened before. He has never seen a facility environmental technician or had an EGD or colonoscopy. He is not on anticoagulation or steroids. He has been taking Excedrin somewhat regularly for headaches. He denies any chest pain. He occasionally experiences shortness of breath. He has a history of asthma. He uses marijuana daily/near daily. He denies any bloody stool. He has had a bowel movement within the past 24 hours and denies any diarrhea or constipation. No history of hepatic disease or cardiac disease. Denies any syncope. Related Data Allergies Allergy/AdvReac Type Severity Reaction Status Date / Time No Known Allergies Allergy Verified 09/14/24 07:28 [facility] Past Medical History Medical History Injury of left leg Viral illness Exposure to parasitic disease Anxiety Suicidal ideation Self-harm Depression Finger fracture GERD (gastroesophageal reflux disease) Asthma Surgical History Surgical History History of tonsillectomy Family History Family History Father Asthma Mother Asthma Depression Anxiety Grandparent Diabetes mellitus Hypertension Social History Social History Smoking status: Current every day smoker Tobacco type: e-cigarettes/vaping Substance use: current Substance use type: marijuana Other substance usage details: uses marijuana daily/near daily for depression and anxiety Do You Feel Safe in your Home?: Yes Lack of Transportation: No Lack of Food: Never True Current Housing: I Have Housing Concerned About Future Housing: No Difficulty Paying Gas/Electric Bills: No Difficulty Paying for Meds: No Currently Unemployed: YES Education: High School Diploma/GED Difficulty w/ Childcare or Family Care: No Living arrangements: with family Gender identity (if verbalized by the patient): Male Exam 2 Narrative: GENERAL: Well-appearing, well-nourished, and in no acute distress. HEAD: Normocephalic, atraumatic. EYES: Non injected, non icteric ENT: Nares clear, no rhinorrhea or epistaxis. Gross auditory acuity intact. Moist mucous membranes although with slight white film on the tongue. NECK: Supple. No meningismus. CHEST: Speaking in full sentences. No respiratory distress. HEART: Regular rate and rhythm. . ABDOMEN: Soft, nondistended. No rigidity or guarding. Not peritoneal. Nontender palpation throughout. EXTREMITIES: Normal range of motion. SKIN: Warm, dry, no rash. NEURO: No focal deficits. Alert and oriented. Answering questions. Following commands. Normal speech without aphasia or dysarthria. PSYCH: Normal mood and affect. Course Vital Signs Vital signs: Vital Signs Temperature 98.4 F 09/14/24 07:23 Pulse Rate 72 09/14/24 07:23 Respiratory Rate 16 09/14/24 07:23 Blood Pressure 118/84 09/14/24 07:23 Pulse Oximetry 99 09/14/24 07:23 Oxygen Delivery Room Air 09/14/24 07:23 Temperature 98.4 F 09/14/24 07:23 Pulse Rate 75 09/14/24 11:00 Respiratory Rate 18 09/14/24 11:00 Blood Pressure 103/69 09/14/24 11:00 Pulse Oximetry 99 09/14/24 11:00 Oxygen Delivery Room Air 09/14/24 07:23 MDM - Nausea/Vomiting/Diarrhea MDM Narrative Medical decision making narrative: 23-year-old male presents with report of 4-5 episodes of bloody emesis. He reports it was bright red, not coffee grounds. This has never happened before. He has been taking Excedrin for a headache recently. He is also having some low abdominal pain. No previous GI issues/does not follow with a facility environmental technician and no prior EGD or colonoscopy. He does use marijuana daily/near daily. In the emergency department they are afebrile with vital signs within normal limits. He has a slight leukocytosis. He is not anemic. Zofran and 80 mg pantoprazole initially ordered. 1 L IV fluids also ordered. Normal renal function without marked electrolyte abnormalities. Lipase and urinalysis also unremarkable. Benign abdominal exam so will defer CT imaging at this time. Aspen-Blatchford bleeding score: Based on patient's Hgb, BUN, initial SBP, sex, heart rate, presence/absence of melena, syncope, hepatic disease, cardiac failure 0?points A GBS of 0 is a ?Low Risk? GI bleed, and is highly sensitive (99.6% in a 2007 retrospective study) for predicting which patients did not require any ?medical intervention?: blood transfusion, endoscopy, or surgery. This was confirmed in a 2009 Lancet study where patients with a score of 0 were actually discharged and had no GI bleeding mortality at 6 month followup Patient is otherwise generally well appearing. He has successfully p.o. challenged per nurse. I did reassess patient he is feeling improved. Will also give famotidine. He has kept fluids down. I encouraged rest and maintaining hydration. He states he does not need a work note for today. Provided prescription for Zofran. Discharged home in stable condition advised follow-up. Differential Diagnosis Differential diagnosis: Likely other (Gastritis, peptic ulcer disease, upper GI bleed; Christen woodard tear; Booerhaves; cannabinoid hyperemesis syndrome; pancreatitis) Lab Data Attestation: I reviewed the patient's lab results. 09/14/24 07:22 09/14/24 07:22 Labs: Lab Results 09/14/24 09/14/24 Range/Units 07:22 07:37 WBC 11.1 H (4.5-10.0) K/mm3 RBC 5.05 (4.6-6.20) M/mm3 Hgb 14.2 (14.0-18.0) g/dL Hct 43.5 (42.0-52.0) % MCV 86.1 (80-100) fl MCH 28.1 (26-34) pg MCHC 32.6 (32-36) g/dl RDW 14.6 H (11.5-14.5) % Plt Count 283 (150-375) k/mm3 MPV 10.2 (7.4-10.4) fl Immature Gran % (Auto) 0.4 (0-0.5) % Neut % (Auto) 71.7 (45.5-73.1) % Lymph % (Auto) 12.5 L (18.3-44.2) % Gila % (Auto) 11.4 H (2.6-8.5) % Eos % (Auto) 3.3 (0-4.4) % Baso % (Auto) 0.7 (0.2-1.2) % Lymph # (Auto) 1.38 (0.9-3.2) K/mm3 Gila # (Auto) 1.3 H (0.1-0.6) K/mm3 Eos # (Auto) 0.4 H (0-0.3) K/mm3 Baso # (Auto) 0.1 (0.0-0.1) K/mm3 Abs Immat Gran (auto) 0.04 H (0.00-0.031) K/mm3 Absolute Neuts (auto) 7.9 H (1.3-6.7) K/mm3 Absolute Nucleated RBC 0.000 (0.0-0.012) K/mm3 Nucleated RBC % 0.0 (0.0-0.2) % Sodium 137 (137-145) mmol/L Potassium 3.9 (3.4-5.0) mmol/L Chloride 102 (98-107) mmol/L Carbon Dioxide 26 (22-30) mmol/L Anion Gap 9 (4-12) mmol/L BUN 17 D (9-20) mg/dL Creatinine 0.96 (0.7-1.3) mg/dL Estim Creat Clear Calc 83 ml/min Estimated GFR > 60 (59 - ) Glucose 119 H (65-110) mg/dL Calcium 10.1 (8.4-10.2) mg/dL Total Bilirubin 0.4 (0.2-1.3) mg/dL AST 35 (17-59) U/L ALT 19 (6-50) U/L Alkaline Phosphatase 77 (38-126) U/L Total Protein 8.1 (6.3-8.2) g/dL Albumin 4.7 (3.5-5.1) g/dL Lipase 159 (23-300) U/L Urine Color Yellow (Yellow) Urine Appearance Clear (Clear) Urine pH 8.5 (5.0-9.0) Ur Specific Pierce 1.009 (1.001-1.035) Urine Protein Negative (Negative) mg/dL Urine Glucose (UA) Negative (Negative) mg/dL Urine Ketones Negative (Negative) mg/dL Ur Blood (Man) Negative (Negative) Urine Nitrate Negative (Negative) Urine Bilirubin Negative (Negative) Urine Urobilinogen 0.2 (<2.0) mg/dL Leukocyte Esterase Rfl Negative (Negative) OLVIN/UL Discharge Plan Discharge Clinical Impression: Abdominal pain Qualifiers: Abdominal location: lower abdomen, unspecified Qualified Code(s): R10.30 - Lower abdominal pain, unspecified Bloody vomitus Qualifiers: Nausea presence: unspecified Qualified Code(s): K92.0 - Hematemesis Patient Disposition: Home Condition: Stable Instructions: Antibiotic Form, Gastritis (DC), Abdominal Pain (ED), Hematemesis (ED) Additional Instructions: As we discussed, the blood in your vomit was likely due to gastritis and this is sometimes caused or exacerbated by NSAIDs. When you take Excedrin for your headaches try to take it with a little food. If you continue to have nausea of vomiting over the next several days you can use the prescribed oral disintegrating tablets of Zofran. Rest and maintain your hydration. Follow-up with your primary care physician and return to the emergency department with any new or worsening symptoms Patient Language: Libyan Prescriptions: New ondansetron 4 mg tablet,disintegrating 4 mg PO Q8H PRN (Reason: nausea and vomiting) Qty: 7 0RF No Action albuterol sulfate 90 mcg/actuation HFA aerosol inhaler 2 puff inhalation Q4H PRN (Reason: shortness of breath or wheezing) Qty: 8.5 3RF ondansetron 4 mg tablet,disintegrating 4 mg PO Q8H PRN (Reason: nausea and vomiting) Qty: 14 0RF hydroxyzine HCl 25 mg tablet 25 mg PO DAILY PRN (Reason: anxiety) Qty: 90 3RF Follow-up/Referrals: Thiago Coy DO [Primary Care Provider] - Stand Alone Forms: Work/School Release IP Time of Disposition: 10:32
[2024-09-14] MEDS: SODIUM CHLORIDE 0.9% IV 1,000 ML 999 ML IV CONT (09:07)
[2024-09-14] MEDS: ONDANSETRON INJ 4 MG/2 ML VIAL IV PUSH (09:08)
[2024-09-14] MEDS: PANTOPRAZOLE SODIUM IV 40 MG VIAL 80 MG IV PUSH (09:08)
[2024-09-14 09:11] VITALS: BP 123/70; PULSE 48; RESP 14; O2SAT 100
[2024-09-14] MEDS: FAMOTIDINE 20 MG/2 ML VIAL IV PUSH (10:52)
[2024-09-14 11:00] VITALS: BP 103/69; PULSE 75; RESP 18; O2SAT 99
== END 2024-09-14 11:03 | disposition home or self-care (01) ==
PROVIDERS: Emergency Provider Student in an Organized Health Care Education/Training Program; PCP Internal Medicine
DX: K92.0 Hematemesis (principal); R10.30 Lower abdominal pain, unspecified; J45.909 Unspecified asthma, uncomplicated; K21.9 Gastro-esophageal reflux disease without esophagitis; F41.9 Anxiety disorder, unspecified; F32.A Depression, unspecified; F17.290 Nicotine dependence, other tobacco product, uncomplicated
CPT/HCPCS: 36415; 80053; 81003; 83690; 85025; 96361; 96374; 96375; 99284; J2405; J2470; J7030

== ENCOUNTER 2025-01-10 14:17 | Emergency (ER) | payer OTHER, SELFPAY ==
[2025-01-10 14:28] VITALS: BP 104/76; PULSE 78; RESP 18; TEMP 36.7; O2SAT 100
--- NOTE | 2025-01-10 14:30 | ED.URI ---
HPI - URI/Sore Throat General Chief Complaint: Upper Respiratory Infection Stated Complaint: Sinus Infections Symptoms Time Seen by Provider: 01/10/25 14:31 Source: patient and RN notes reviewed Mode of arrival: ambulatory Limitations: no limitations History of Present Illness HPI Narrative: 24-year-old male with history of asthma presents with concern for 3 day history of cough, runny nose, stuffy nose, sore throat. Reports he last used his albuterol inhaler this morning. He is running out of his albuterol inhaler. He denies fever, body aches, chills, sweats. Denies known sick contacts MD elicited complaint: cough and sore throat Related Data Allergies Allergy/AdvReac Type Severity Reaction Status Date / Time No Known Allergies Allergy Verified 01/10/25 14:20 Review of Systems Review of Systems: CONSTITUTIONAL: Denies malaise, chills, sweats, or fever. EYES: Denies visual changes, redness, or discharge. ENT: Reports rhinorrhea, congestion, and sore throat. CARDIOVASCULAR: Denies chest pain, palpitations, or edema. RESPIRATORY: Reports cough. Denies dyspnea. GASTROINTESTINAL: Denies abdominal pain, nausea, vomiting, diarrhea SKIN: Denies rash or itching. MUSCULOSKELETAL: Denies myalgia. NEUROLOGIC: Denies headache. All systems reviewed & are unremarkable except as noted in HPI and below PMFSH Past Medical History Medical History Injury of left leg Viral illness Exposure to parasitic disease Anxiety Suicidal ideation Self-harm Depression Finger fracture GERD (gastroesophageal reflux disease) Asthma Surgical History Surgical History History of tonsillectomy Family History Family History Father Asthma Mother Asthma Depression Anxiety Grandparent Diabetes mellitus Hypertension Social History Social History Smoking status: Current every day smoker Tobacco type: e-cigarettes/vaping Substance use: current Substance use type: marijuana Other substance usage details: uses marijuana daily/near daily for depression and anxiety Do You Feel Safe in your Home?: Yes Lack of Transportation: No Lack of Food: Never True Current Housing: I Have Housing Concerned About Future Housing: No Difficulty Paying Gas/Electric Bills: No Difficulty Paying for Meds: No Currently Unemployed: YES Education: High School Diploma/GED Difficulty w/ Childcare or Family Care: No Living arrangements: with family Gender identity (if verbalized by the patient): Male Comments At time of signature, agree with nursing past medical, surgical, social and family history. There is no relevant family history pertinent to the presenting complaint Exam Narrative: GENERAL: Well-appearing, well-nourished, and in no acute distress. HEAD: Normocephalic EYES: PERRLA, conjunctivae clear ENT: Nares clear Mucous membranes moist. TM pearly henry with dull light reflex bilaterally; no tragal tenderness. Oropharynx not erythematous without lesions. Tonsils not enlarged and without exudate, no drooling, no hoarseness, no trismus, uvula midline. NECK: Supple. No lymphadenopathy CHEST: Clear to auscultation, breath sounds equal. No wheezing, rhonchi, rales, or stridor. No respiratory distress, speaks in full sentences. HEART: Regular rate and rhythm. No murmur heard. SKIN: Warm, dry, no rash. NEURO: Alert and oriented x3. PSYCH: Normal mood and affect Course Course Emergency Course: Patient is aware of diagnosis, understands and agrees to treatment plan. Anticipatory guidance given. Patient agrees to follow-up as directed and is aware of reasons to seek care at the emergency department. Portions of this record may have been created with voice recognition software Level of Care: Express Care Visit Vital Signs Vital signs: Vital Signs Temperature 98.1 F 01/10/25 14:28 Pulse Rate 78 01/10/25 14:28 Respiratory Rate 18 01/10/25 14:28 Blood Pressure 104/76 01/10/25 14:28 Pulse Oximetry 100 01/10/25 14:28 Temperature 98.1 F 01/10/25 14:28 Pulse Rate 78 01/10/25 14:28 Respiratory Rate 18 01/10/25 14:28 Blood Pressure 104/76 01/10/25 14:28 Pulse Oximetry 100 01/10/25 14:28 Reviewed. MDM - URI/Sore Throat MDM Narrative Medical decision making narrative: Differential diagnosis considered: [place] virus, strep pharyngitis, allergic rhinitis, upper respiratory tract infection, sinusitis, rhinosinusitis, nasopharyngitis. viral pharyngitis, otitis media, otitis externa, pneumonia, bronchitis, viral cough syndrome, viral syndrome, and influenza. Exam findings show no acute concerns or changes; patient is non-toxic appearing and is in no distress. Patient is appropriate for outpatient treatment and follow-up. Lab Data Attestation: I reviewed the patient's lab results. Critical Care Time Critical Care Time Critical Care Time: No Discharge Plan Discharge Clinical Impression: Upper respiratory infection Patient Disposition: Home Condition: Stable Instructions: Upper Respiratory Infection (ED) Additional Instructions: Viral illness may last between 7-21 days; antibiotics do not cure viral illness and are NOT recommended at this time. Recommend antihistamine such as Benadryl at night time and Zyrtec or Cinthia during the day Use inhaler as needed for cough, wheezing, shortness of breath or chest tightness. Also, recommend symptomatic treatment includes: rest, fluids, and increase humidity of the air at home. Recommend Acetaminophen as directed on the bottle to reduce fever, pain, headache. Avoid smoking/second-hand smoke. Please schedule a follow-up visit with your personal physician for further evaluation and treatment within 3-5days. If your symptoms persist, change or worsen significantly before you can contact your personal physician then please, without delay, go to the emergency department for further evaluation. Patient Language: Mongolian Prescriptions: New pseudoephedrine HCl [12 Hour Decongestant] 120 mg tablet extended release 120 mg PO Q12H PRN (Reason: nasal congestion) Qty: 20 0RF albuterol sulfate 90 mcg/actuation HFA aerosol inhaler 2 puff INHALATION QID PRN (Reason: shortness of breath or wheezing) Qty: 8.5 0RF No Action albuterol sulfate 90 mcg/actuation HFA aerosol inhaler 2 puff inhalation Q4H PRN (Reason: shortness of breath or wheezing) Qty: 8.5 3RF ondansetron 4 mg tablet,disintegrating 4 mg PO Q8H PRN (Reason: nausea and vomiting) Qty: 14 0RF ondansetron 4 mg tablet,disintegrating 4 mg PO Q8H PRN (Reason: nausea and vomiting) Qty: 7 0RF hydroxyzine HCl 25 mg tablet 25 mg PO DAILY PRN (Reason: anxiety) Qty: 90 3RF Follow-up/Referrals: PHYSICIAN,ELECTRICIAN MANAGER [Primary Care Provider, Internal Medicine] Time of Disposition: 14:58
[2025-01-10 14:53] LABS: EDCOVIDSCREEN Negative (Negative); EDINFLUASCREEN Negative (Negative); EDINFLUBSCREEN Negative (Negative); EDSTREPNEGPOS1 Negative (Negative)
== END 2025-01-10 15:05 | disposition home or self-care (01) ==
PROVIDERS: Emergency Provider Nurse Practitioner
DX: J06.9 Acute upper respiratory infection, unspecified (principal); Z20.822 Contact with and (suspected) exposure to COVID-19; F17.290 Nicotine dependence, other tobacco product, uncomplicated; F12.90 Cannabis use, unspecified, uncomplicated; J45.909 Unspecified asthma, uncomplicated; K21.9 Gastro-esophageal reflux disease without esophagitis; F41.9 Anxiety disorder, unspecified
CPT/HCPCS: 87081; 87426; 87804; 87880; 99213; G0463